=== PATIENT | female | born 1945 | race Caucasian/White ===

== ENCOUNTER → 2018-01-16 11:43 | Outpatient (CLI) | payer MEDICARE, OTHER, SELFPAY ==
[2018-01-16 14:23] LABS: D Dimer < 200 ng/mL (<230)
== END ==
PROVIDERS: Visit Provider Internal Medicine Hematology & Oncology
DX: Z86.718 Personal history of other venous thrombosis and embolism (principal)
CPT/HCPCS: 36415; 85379

== ENCOUNTER → 2018-05-30 16:04 | Outpatient (CLI) | payer MEDICARE, SELFPAY ==
--- NOTE | 2018-05-30 | DI.MRI.S_ITS ---
PROCEDURE: MR HEAD/BRAIN WO/W CON INDICATIONS: COGNITIVE CHANGES. HEADACHES. MULTIPLE FALLS TECHNIQUE: Noncontrast axial T1 spin echo, axial T2 fast spin echo, sagittal and axial FLAIR, coronal T2 fast spin echo, axial gradient echo, axial diffusion and ADC through the brain. After the administration of contrast, axial and coronal T1 spin echo with fat saturation through the brain. COMPARISON: [facility], CT, HEAD WITHOUT CONTRAST, 12/29/2013, 17:40. [facility], CT, HEAD WITHOUT CONTRAST, 09/04/2015, 14:18. FINDINGS: Image quality: Excellent. CSF spaces: Basal cisterns are patent. No extra-axial fluid collections. Ventricles are normal in size and shape. Brain: No midline shift. No intracranial bleeds or masses. No abnormal intracranial enhancement. There is cerebral volume loss for age. There is periventricular white matter chronic small vessel ischemic change. The brainstem appears normal. Diffusion-weighted images demonstrate no acute ischemic insults. No chronic ischemic insults. Normal intravascular flow voids are present. Skull and face: Calvarial marrow is normal in signal. Orbits appear normal. Note is made of bilateral lens replacements. Sinuses: Sinuses and mastoids appear clear. Bilateral jermaine bullosa are incidentally noted, right larger than left. IMPRESSION: Normal intracranial study for age. No findings of acute or subacute infarction can be seen. Note is made of age-appropriate brain parenchymal volume loss and chronic small vessel ischemic changes. Dictated by: Pernell Starr M.D. on 05/30/2018 at 17:03 Approved by: Pernell Starr M.D. on 05/30/2018 at 17:05
== END ==
PROVIDERS: PCP Family Medicine; Visit Provider Family Medicine
DX: R41.89 Other symptoms and signs involving cognitive functions and awareness (principal); R51 Headache; Z91.81 History of falling
CPT/HCPCS: 70553; A9579

== ENCOUNTER 2018-06-07 09:00 | Outpatient (RCR) | payer MEDICARE, OTHER, SELFPAY ==
--- NOTE | 2018-04-13 15:45 | PT.OIE ---
Current Diagnoses Postural lordosis, site unspecified (04/13/18) Other osteoporosis without current pathological fracture (04/13/18) Weakness (04/13/18) Encounter for therapeutic drug level monitoring (04/13/18) Provider Visit Care Team Role Provider Type Mike Nation MD Attending Provider Non-Staff Specialty: Family Practice Address: [address] [place] [address], [phone] Fax: Email: Physical Therapy Initial Evaluation PT-OP-A Visit Information Start: 04/12/18 14:51 Freq: Status: Active Protocol: Document 04/13/18 11:22 LRN (Rec: 04/13/18 12:46 LRN [id number]) Out-Patient Physical Therapy Visit Information Visit Information Visit Type Initial Evaluation Visit Start Time 11:22 Visit Stop Time 12:22 Total Visit Minutes 60 Visit Number 05/10 Number of AUTO MACHINIST Visits 0 Evaluation Information Evaluation Date 04/13/18 Precautions Precautions Osteoporosis with 3 spinal fractures in 2014, Waldemar TKA's, Depression PT-OP-B Current Condition Start: 04/12/18 14:51 Freq: Status: Active Protocol: Document 04/13/18 11:22 LRN (Rec: 04/13/18 12:46 LRN [id number]) Current Condition History of Current Condition Onset Date 3 yrs ago Current Complaints If posture is changed like its supposed to be she has pain. History of Current Condition 3 yrs ago within a 4 month period had 3 vertebra fractures (kyphoplasty only after the first fracture). 1st time was reaching to remove a blouse from behind a door. 2nd time was pulling self up into a boat. 3rd time not sure but thinks it was stepping up into a bus, using railing to pull self up. Fracture in upper, mid and lower back. Currently she has pain after any prolonged positioning or when trying to return to a more normal posture positioni. PMH: Blood Clots 6-7 yrs ago. On Blood thinners. TKA: 6 yrs ago. Depression with meds and therapy. Osteoporosis with neck and back pain. Prior Treatments and Tests Forteo injections for osteoporosis in the abdomen daily for 2 yrs with + response, currently taking Proleia injections for osteoporosis 1x/6 months. Future Testing and Treatments Planned Yearly check of bone density. Treatment Goals Patient/Caregiver Goals Couple of sessions to Learn exercises to improve posture and reduce stiffness and pain with prolonged positioning. Agreeable to up to 5 treatments as needed to be placed on HEP. Pt goal is to improve appearance to avoid hunching over and be able to maintain her posture like she should have it. Prior Functional Status Baseline Function- ADL's Independent Baseline Function- Mobility Independent Current Functional Impairments (Reported) Functional Limitations- ADL's Lifting Twisting (dressing, cleaning, cooking) Limited with head movement affecting driving. Functional Limitations- Mobility/Gait Limited 2 miles hiking due to becoming sore and tired. Functional Limitations- Recreation/ Boating and living on a Hobbies sailboat for 3 months of the year (August - November). Personal Factors Other Personal Factors That May Effect Age is 65+ Therapy/Recovery Lives on boat Osteoporosis Depression Spinal fracture history. PT-OP-C Subjective Start: 04/12/18 14:51 Freq: Status: Active Protocol: Document 04/13/18 11:22 LRN (Rec: 04/13/18 12:46 LRN [id number]) Patient Questionnaires Oswestry Low Back Index Oswestry Score 1 Oswestry Impairment 1 to 19% Impaired (Score 1-19) OP-PT Pain Assessment Pain Assessment Grid Paper Pain Assessment Grid Completed Yes Location Mid back Pain Location Details Across back at T3-T8 level Intensity 4 Scale Used Numeric (1 - 10) Description Aching Description- Other Pain when coming out of Prolonged positioning Frequency Intermittent Pain Duration Short: 1/2 hr to 45' Pain Aggravating Factors Position Changing Position Activity Lifting Pain Alleviating Factors Lying Supine Upper Back Pain Location Details Upper Trapezius and Supraspinatus Bilaterally Intensity 4 Scale Used Numeric (1 - 10) Description Aching Description- Other Pain when coming out of Prolonged positioning Frequency Daily Pain Duration Short: 1/2 hr to 45' Pain Aggravating Factors Changing Position Activity Lifting Pain Alleviating Factors Lying Supine Other Pain Alleviating Factors Standing up against a wall. PT-OP-F Manual Assessment Start: 04/12/18 14:51 Freq: Status: Active Protocol: Document 04/13/18 11:22 LRN (Rec: 04/13/18 17:08 LRN [id number]) Manual Assessments Soft Tissue Assessment Soft Tissue Mobility Assessment Tenderness is present at T9 Spinous process and facet joint region on the left. PT-OP-H Neuro Start: 04/12/18 14:51 Freq: Status: Active Protocol: Document 04/13/18 11:22 LRN (Rec: 04/13/18 17:08 LRN [id number]) Sensation Evaluation Gross Sensation Gross Sensation WNL PT-OP-J Posture/Palpation/Skin Start: 04/12/18 14:51 Freq: Status: Active Protocol: Document 04/13/18 11:22 LRN (Rec: 04/13/18 17:08 LRN [id number]) Posture Evaluation Position Standing Head/C-Spine Posture Side Bent Left Forward Head T-Spine Posture Increased Kyphosis L-Spine Posture Increased Lordosis Shoulder Posture (L) Elevated Scapula Posture (R) Rotated Up Weight Distribution Weight Shifted Left Decreased Wt.Bear on (R) Knee Posture (R) Excess Flexion Palpation Assessment Location Thoracic region Palpation Location Posterior Mid thoracic Palpation Findings Tenderness Neck and Upper shoulders Palpation Findings Muscle Guarding Tenderness PT-OP-K Range of Motion Start: 04/12/18 14:51 Freq: Status: Active Protocol: Document 04/13/18 11:22 LRN (Rec: 04/13/18 17:08 LRN [id number]) Cervical Spine Range of Motion Cervical Spine Active Degrees Testing Position Sitting Flexion 40 Extension 46 Rotation Left 37 Rotation Right 40 Lateral Flexion Left 22 Lateral Flexion Right 20 ROM Limitations Soft Tissue Tightness Pain Shoulder Goniometric Range of Motion Shoulder ROM Limitations Comments BILATERAL Shoulder: Flex is 147 deg's, Extension is 37 deg 's, Reaching behind the back to level of T10, Reaching reaching behind the head to T3 . Shoulder AB is 170 deg's left, WNL right PT-OP-M Strength Start: 04/12/18 14:51 Freq: Status: Active Protocol: Document 04/13/18 11:22 LRN (Rec: 04/13/18 17:08 LRN [id number]) Trunk Strength Trunk Manual Muscle Testing Comments Deferred formal MMT due to pt osteoporosis and history of fractures. Pt trunk strength is at least 3/5 without onset of pain. PT-OP-Q Treatments Start: 04/12/18 14:51 Freq: Status: Active Protocol: Document 04/13/18 11:22 LRN (Rec: 04/13/18 17:08 LRN [id number]) Therapeutic Exercises Supine Exercises Cervical Sidebend Supine Exercise Name Active stretch Side bilateral Reps/Minutes 4 Cervical rotation Supine Exercise Name Active Cervical stretch Side bilateral Reps/Minutes 4' Thoracic extension Side bilateral Reps/Minutes 3' Self-Care/Home Management Treatment Education Patient Education Home Exercise Program Activities Self-Care/Home Management Activities Issued and reviewed HEP of cervical rot & SB stretches and thoracic extension in supine. PT-OP-T Assessment and Plan Start: 04/12/18 14:51 Freq: Status: Active Protocol: Document 04/13/18 11:22 LRN (Rec: 04/13/18 12:46 LRN [id number]) Physical Therapy Assessment Evaluation Complexity Number of Personal Factors/Comorbidities 3 or More Number of Body Systems Impaired 3 Clinical Presentation at Evaluation Stable Impairments Impairments Functional Activities Functional Mobility Pain Posture ROM Strength Other Concerns Age Related Concerns Age 65+ Barriers to Rehabilitation Chronicity of condition, Depression Osteoporosis and spinal fracture history. Goals Three Impairment Decreased postural stabilization and core strength. Jail Goal (LTG) Pt will be able to change trunk position with minimal onset of pain and minimize pain onset with functional activities and the need to lie down to relieve pain. LTG Duration 05/25/18 Two Impairment Poor posture Med Peds Goal (LTG) Pt will be able to demonstrate improved posturing without verbal cuing. LTG Duration 05/25/18 One Impairment Lacks appropriate self care program. Med Peds Goal (LTG) Pt will be independent in a self group home exercise program. LTG Duration 05/25/18 Assessment Summary Assessment Pt is a 72 year old female who presents with notable thoracic kyphosis and a habit of standing on the left lower extremities with the right leg flexed. She demonstrates decreased mobility primarily in the neck and shoulders with mobility retriction in the thoracic spine with kyphoplasty level unknown. The pt notes difficulty maintaining good posture with onset of pain when she tries to self correct her posture; therefore she has weak trunk stabilizers/extensors. The pt will benefit from skilled physical therapy to improve posture, strength, and neck mobility. Physical Therapy Plan Frequency and Duration Frequency of Treatment 1x/Week Plan of Care Start Date 04/13/18 Plan of Care End Date 05/25/18 Therapeutic Interventions Therapeutic Interventions Home Exercise Program Manual Therapy Neuromuscular Re-education Self-Care/Home Management Soft Tissue Mobilization Therapeutic Exercises Modalities Cold Pack/Ice Massage Hot Packs Next Visit Focus/Plan Next Note Type Treatment Note Next Visit Plan Review HEP, promote postural awareness in 4-pt if tolerated and progress to sit/stand, teach thoracic extension in supine and paraspinal strengthening in supine. STM if needed. End with cold pack .
--- NOTE | 2018-04-13 15:45 | PT.OPPOC ---
Current Diagnoses Postural lordosis, site unspecified (04/13/18) Other osteoporosis without current pathological fracture (04/13/18) Weakness (04/13/18) Encounter for therapeutic drug level monitoring (04/13/18) Provider Visit Care Team Role Provider Type Mike Nation MD Attending Provider Non-Staff Specialty: Family Practice Address: [address] [place] [address], [phone] Fax: Email: Plan Of Care PT-OP-T Assessment and Plan Start: 04/12/18 14:51 Freq: Status: Active Protocol: Document 04/13/18 11:22 LRN (Rec: 04/13/18 12:46 LRN [id number]) Physical Therapy Assessment Evaluation Complexity Number of Personal Factors/Comorbidities 3 or More Number of Body Systems Impaired 3 Clinical Presentation at Evaluation Stable Impairments Impairments Functional Activities Functional Mobility Pain Posture ROM Strength Other Concerns Age Related Concerns Age 65+ Barriers to Rehabilitation Chronicity of condition, Depression Osteoporosis and spinal fracture history. Goals Three Impairment Decreased postural stabilization and core strength. Custodial Goal (LTG) Pt will be able to change trunk position with minimal onset of pain and minimize pain onset with functional activities and the need to lie down to relieve pain. LTG Duration 05/25/18 Two Impairment Poor posture Pipe Covering Molder Goal (LTG) Pt will be able to demonstrate improved posturing without verbal cuing. LTG Duration 05/25/18 One Impairment Lacks appropriate self care program. Custodial Goal (LTG) Pt will be independent in a self assisted exercise program. LTG Duration 05/25/18 Assessment Summary Assessment Pt is a 72 year old female who presents with notable thoracic kyphosis and a habit of standing on the left lower extremities with the right leg flexed. She demonstrates decreased mobility primarily in the neck and shoulders with mobility retriction in the thoracic spine with kyphoplasty level unknown. The pt notes difficulty maintaining good posture with onset of pain when she tries to self correct her posture; therefore she has weak trunk stabilizers/extensors. The pt will benefit from skilled physical therapy to improve posture, strength, and neck mobility. Physical Therapy Plan Frequency and Duration Frequency of Treatment 1x/Week Plan of Care Start Date 04/13/18 Plan of Care End Date 05/25/18 Therapeutic Interventions Therapeutic Interventions Home Exercise Program Manual Therapy Neuromuscular Re-education Self-Care/Home Management Soft Tissue Mobilization Therapeutic Exercises Modalities Cold Pack/Ice Massage Hot Packs Next Visit Focus/Plan Next Note Type Treatment Note Next Visit Plan Review HEP, promote postural awareness in 4-pt if tolerated and progress to sit/stand, teach thoracic extension in supine and paraspinal strengthening in supine. STM if needed. End with cold pack . Plan of Care Dates Plan of Care Start Date 04/13/18 Plan of Care End Date 05/25/18 Please Sign and Return: I have reviewed this Plan of Care and certify that the skilled therapy services above are required to meet the patient?s needs. Physician Signature Date Printed Name and Credentials Clinical Instructor Signature Printed Name and Credentials
--- NOTE | 2018-04-17 12:20 | PT.OTN ---
Current Diagnoses Postural lordosis, site unspecified (04/17/18) Other osteoporosis without current pathological fracture (04/17/18) Encounter for therapeutic drug level monitoring (04/17/18) Physical Therapy Treatment Note PT-OP-A Visit Information Start: 04/12/18 14:51 Freq: Status: Active Protocol: Document 04/17/18 10:25 EA (Rec: 04/17/18 10:32 EA [id number]) Out-Patient Physical Therapy Visit Information Visit Information Visit Type Treatment Note Visit Start Time 09:45 Visit Stop Time 10:30 Total Visit Minutes 45 Visit Number 2 PT-OP-B Current Condition Start: 04/12/18 14:51 Freq: Status: Active Protocol: Document 04/13/18 11:22 LRN (Rec: 04/13/18 12:46 LRN [id number]) Current Condition History of Current Condition Onset Date 3 yrs ago Current Complaints If posture is changed like its supposed to be she has pain. History of Current Condition 3 yrs ago within a 4 month period had 3 vertebra fractures (kyphoplasty only after the first fracture). 1st time was reaching to remove a blouse from behind a door. 2nd time was pulling self up into a boat. 3rd time not sure but thinks it was stepping up into a bus, using railing to pull self up. Fracture in upper, mid and lower back. Currently she has pain after any prolonged positioning or when trying to return to a more normal posture positioni. PMH: Blood Clots 6-7 yrs ago. On Blood thinners. TKA: 6 yrs ago. Depression with meds and therapy. Osteoporosis with neck and back pain. Prior Treatments and Tests Forteo injections for osteoporosis in the abdomen daily for 2 yrs with + response, currently taking Proleia injections for osteoporosis 1x/6 months. Future Testing and Treatments Planned Yearly check of bone density. Treatment Goals Patient/Caregiver Goals Couple of sessions to Learn exercises to improve posture and reduce stiffness and pain with prolonged positioning. Agreeable to up to 5 treatments as needed to be placed on HEP. Pt goal is to improve appearance to avoid hunching over and be able to maintain her posture like she should have it. Prior Functional Status Baseline Function- ADL's Independent Baseline Function- Mobility Independent Current Functional Impairments (Reported) Functional Limitations- ADL's Lifting Twisting (dressing, cleaning, cooking) Limited with head movement affecting driving. Functional Limitations- Mobility/Gait Limited 2 miles hiking due to becoming sore and tired. Functional Limitations- Recreation/ Boating and living on a Hobbies sailboat for 3 months of the year (August - November). Personal Factors Other Personal Factors That May Effect Age is 65+ Therapy/Recovery Lives on boat Osteoporosis Depression Spinal fracture history. PT-OP-C Subjective Start: 04/12/18 14:51 Freq: Status: Active Protocol: Document 04/17/18 10:25 EA (Rec: 04/17/18 10:32 EA [id number]) OP-PT Subjective Patient Comments Patient Comments Pt reports unclear about some HEP> and would like to explain again. PT-OP-F Manual Assessment Start: 04/12/18 14:51 Freq: Status: Active Protocol: Document 04/13/18 11:22 LRN (Rec: 04/13/18 17:08 LRN [id number]) Manual Assessments Soft Tissue Assessment Soft Tissue Mobility Assessment Tenderness is present at T9 Spinous process and facet joint region on the left. PT-OP-H Neuro Start: 04/12/18 14:51 Freq: Status: Active Protocol: Document 04/13/18 11:22 LRN (Rec: 04/13/18 17:08 LRN [id number]) Sensation Evaluation Gross Sensation Gross Sensation WNL PT-OP-J Posture/Palpation/Skin Start: 04/12/18 14:51 Freq: Status: Active Protocol: Document 04/13/18 11:22 LRN (Rec: 04/13/18 17:08 LRN [id number]) Posture Evaluation Position Standing Head/C-Spine Posture Side Bent Left Forward Head T-Spine Posture Increased Kyphosis L-Spine Posture Increased Lordosis Shoulder Posture (L) Elevated Scapula Posture (R) Rotated Up Weight Distribution Weight Shifted Left Decreased Wt.Bear on (R) Knee Posture (R) Excess Flexion Palpation Assessment Location Thoracic region Palpation Location Posterior Mid thoracic Palpation Findings Tenderness Neck and Upper shoulders Palpation Findings Muscle Guarding Tenderness PT-OP-K Range of Motion Start: 04/12/18 14:51 Freq: Status: Active Protocol: Document 04/13/18 11:22 LRN (Rec: 04/13/18 17:08 LRN [id number]) Cervical Spine Range of Motion Cervical Spine Active Degrees Testing Position Sitting Flexion 40 Extension 46 Rotation Left 37 Rotation Right 40 Lateral Flexion Left 22 Lateral Flexion Right 20 ROM Limitations Soft Tissue Tightness Pain Shoulder Goniometric Range of Motion Shoulder ROM Limitations Comments BILATERAL Shoulder: Flex is 147 deg's, Extension is 37 deg 's, Reaching behind the back to level of T10, Reaching reaching behind the head to T3 . Shoulder AB is 170 deg's left, WNL right PT-OP-M Strength Start: 04/12/18 14:51 Freq: Status: Active Protocol: Document 04/13/18 11:22 LRN (Rec: 04/13/18 17:08 LRN [id number]) Trunk Strength Trunk Manual Muscle Testing Comments Deferred formal MMT due to pt osteoporosis and history of fractures. Pt trunk strength is at least 3/5 without onset of pain. PT-OP-Q Treatments Start: 04/12/18 14:51 Freq: Status: Active Protocol: Document 04/17/18 10:25 EA (Rec: 04/17/18 10:32 EA [id number]) Cardio Equipment Recumbent Bicycle Duration (Minutes) 5 Resistance 4 Seat Position 4 Therapeutic Exercises Sitting Exercises 1 Sitting Exercise Name chin tuck Reps/Minutes x 10 repsx 5SH Standing Exercises 4 Standing Exercise Name Pectoral stretch Side bilateral Reps/Minutes x30 SH x 2 3 Standing Exercise Name Shoulder ext Side bilateral Resistance Lv1 Reps/Minutes x 10 reps x 2 2 Standing Exercise Name Wall squat (30Deg) Reps/Minutes x 5SH x 10 reps 1 Standing Exercise Name Wall posture Reps/Minutes x 5SH x 10 reps Self-Care/Home Management Treatment Education Patient Education Body Mechanics Home Exercise Program Posture Safety Other Education Educated with activites that that requires pre-cautions. Educated with all HEP safety. PT-OP-R Modalities Start: 04/12/18 14:51 Freq: Status: Active Protocol: Document 04/17/18 10:25 EA (Rec: 04/17/18 10:32 EA [id number]) Hot Pack/Cold Pack Treatment Hot Pack Location paralumabr/thoracis Patient Position Sitting Treatment Duration (minutes) 10 Patient Tolerance Good PT-OP-T Assessment and Plan Start: 04/12/18 14:51 Freq: Status: Active Protocol: Document 04/17/18 10:25 EA (Rec: 04/17/18 10:32 EA [id number]) Physical Therapy Assessment Assessment Summary Assessment Patient exhibits good carryover with HEP. Patient requires cues during wall squat and shoulder extension exercises for form and execution. Physical Therapy Plan Next Visit Focus/Plan Next Note Type Treatment Note Next Visit Plan Progress as tolerated
--- NOTE | 2018-04-19 15:59 | PT.OTN ---
Current Diagnoses Postural lordosis, site unspecified (04/19/18) Other osteoporosis without current pathological fracture (04/19/18) Encounter for therapeutic drug level monitoring (04/19/18) Physical Therapy Treatment Note PT-OP-A Visit Information Start: 04/12/18 14:51 Freq: Status: Active Protocol: Document 04/19/18 15:15 DCW (Rec: 04/19/18 15:59 DCW [id number]) Out-Patient Physical Therapy Visit Information Visit Information Visit Type Treatment Note Visit Start Time 15:15 Visit Stop Time 16:00 Total Visit Minutes 45 Visit Number 3 Evaluation Information Evaluation Date 04/13/18 PT-OP-B Current Condition Start: 04/12/18 14:51 Freq: Status: Active Protocol: Document 04/13/18 11:22 LRN (Rec: 04/13/18 12:46 LRN [id number]) Current Condition History of Current Condition Onset Date 3 yrs ago Current Complaints If posture is changed like its supposed to be she has pain. History of Current Condition 3 yrs ago within a 4 month period had 3 vertebra fractures (kyphoplasty only after the first fracture). 1st time was reaching to remove a blouse from behind a door. 2nd time was pulling self up into a boat. 3rd time not sure but thinks it was stepping up into a bus, using railing to pull self up. Fracture in upper, mid and lower back. Currently she has pain after any prolonged positioning or when trying to return to a more normal posture positioni. PMH: Blood Clots 6-7 yrs ago. On Blood thinners. TKA: 6 yrs ago. Depression with meds and therapy. Osteoporosis with neck and back pain. Prior Treatments and Tests Forteo injections for osteoporosis in the abdomen daily for 2 yrs with + response, currently taking Proleia injections for osteoporosis 1x/6 months. Future Testing and Treatments Planned Yearly check of bone density. Treatment Goals Patient/Caregiver Goals Couple of sessions to Learn exercises to improve posture and reduce stiffness and pain with prolonged positioning. Agreeable to up to 5 treatments as needed to be placed on HEP. Pt goal is to improve appearance to avoid hunching over and be able to maintain her posture like she should have it. Prior Functional Status Baseline Function- ADL's Independent Baseline Function- Mobility Independent Current Functional Impairments (Reported) Functional Limitations- ADL's Lifting Twisting (dressing, cleaning, cooking) Limited with head movement affecting driving. Functional Limitations- Mobility/Gait Limited 2 miles hiking due to becoming sore and tired. Functional Limitations- Recreation/ Boating and living on a Hobbies sailboat for 3 months of the year (August - November). Personal Factors Other Personal Factors That May Effect Age is 65+ Therapy/Recovery Lives on boat Osteoporosis Depression Spinal fracture history. PT-OP-C Subjective Start: 04/12/18 14:51 Freq: Status: Active Protocol: Document 04/19/18 15:15 DCW (Rec: 04/19/18 15:59 DCW [id number]) OP-PT Subjective Patient Comments Patient Comments Pt reports she is really feeling her sore muscles from her ribs and shoulders, but she is here ready to go. PT-OP-F Manual Assessment Start: 04/12/18 14:51 Freq: Status: Active Protocol: Document 04/13/18 11:22 LRN (Rec: 04/13/18 17:08 LRN [id number]) Manual Assessments Soft Tissue Assessment Soft Tissue Mobility Assessment Tenderness is present at T9 Spinous process and facet joint region on the left. PT-OP-H Neuro Start: 04/12/18 14:51 Freq: Status: Active Protocol: Document 04/13/18 11:22 LRN (Rec: 04/13/18 17:08 LRN [id number]) Sensation Evaluation Gross Sensation Gross Sensation WNL PT-OP-J Posture/Palpation/Skin Start: 04/12/18 14:51 Freq: Status: Active Protocol: Document 04/13/18 11:22 LRN (Rec: 04/13/18 17:08 LRN [id number]) Posture Evaluation Position Standing Head/C-Spine Posture Side Bent Left Forward Head T-Spine Posture Increased Kyphosis L-Spine Posture Increased Lordosis Shoulder Posture (L) Elevated Scapula Posture (R) Rotated Up Weight Distribution Weight Shifted Left Decreased Wt.Bear on (R) Knee Posture (R) Excess Flexion Palpation Assessment Location Thoracic region Palpation Location Posterior Mid thoracic Palpation Findings Tenderness Neck and Upper shoulders Palpation Findings Muscle Guarding Tenderness PT-OP-K Range of Motion Start: 04/12/18 14:51 Freq: Status: Active Protocol: Document 04/13/18 11:22 LRN (Rec: 04/13/18 17:08 LRN [id number]) Cervical Spine Range of Motion Cervical Spine Active Degrees Testing Position Sitting Flexion 40 Extension 46 Rotation Left 37 Rotation Right 40 Lateral Flexion Left 22 Lateral Flexion Right 20 ROM Limitations Soft Tissue Tightness Pain Shoulder Goniometric Range of Motion Shoulder ROM Limitations Comments BILATERAL Shoulder: Flex is 147 deg's, Extension is 37 deg 's, Reaching behind the back to level of T10, Reaching reaching behind the head to T3 . Shoulder AB is 170 deg's left, WNL right PT-OP-M Strength Start: 04/12/18 14:51 Freq: Status: Active Protocol: Document 04/13/18 11:22 LRN (Rec: 04/13/18 17:08 LRN [id number]) Trunk Strength Trunk Manual Muscle Testing Comments Deferred formal MMT due to pt osteoporosis and history of fractures. Pt trunk strength is at least 3/5 without onset of pain. PT-OP-Q Treatments Start: 04/12/18 14:51 Freq: Status: Active Protocol: Document 04/19/18 15:15 DCW (Rec: 04/19/18 15:59 DCW [id number]) Cardio Equipment Recumbent Bicycle Duration (Minutes) 5 Resistance 5 Seat Position 3 Therapeutic Exercises Supine Exercises Foam Roll Supine Exercise Name Supine on foam roll with pec stretch Equipment Used Full foam roll Prone Exercises I, Y, T's on T-ball Prone Exercise Name Prone on T-ball - I's, Y's, and T's Equipment Used Green T-ball Sitting Exercises Rows Sitting Exercise Name Rows Side bilateral Resistance Lv 3 T-band Equipment Used Seated on Green T-ball Shoulder Extension Sitting Exercise Name Extension Side bilateral Resistance Lv 3 T-band Equipment Used Seated on Green T-ball Shoulder Retraction Sitting Exercise Name Scapular retraction with chin tuck Reps/Minutes 5 hold Comments VCs to prevent shoulder elevation Standing Exercises Horizontal Abduction Standing Exercise Name Horizontal Abduction Side bilateral Resistance Lv 3 Equipment Used T-band 2 Standing Exercise Name Wall squat (30Deg) Reps/Minutes x 5SH x 10 reps 1 Standing Exercise Name Wall posture Reps/Minutes x 5SH x 10 reps PT-OP-R Modalities Start: 04/12/18 14:51 Freq: Status: Active Protocol: Document 04/17/18 10:25 EA (Rec: 04/17/18 10:32 EA [id number]) Hot Pack/Cold Pack Treatment Hot Pack Location paralumabr/thoracis Patient Position Sitting Treatment Duration (minutes) 10 Patient Tolerance Good PT-OP-T Assessment and Plan Start: 04/12/18 14:51 Freq: Status: Active Protocol: Document 04/19/18 15:15 DCW (Rec: 04/19/18 15:59 DCW [id number]) Physical Therapy Assessment Impairments Impairments Functional Activities Functional Mobility Pain Posture ROM Strength Goals Three Impairment Decreased postural stabilization and core strength. Web Marketing Assistant Goal (LTG) Pt will be able to change trunk position with minimal onset of pain and minimize pain onset with functional activities and the need to lie down to relieve pain. LTG Duration 05/25/18 Two Impairment Poor posture Web Marketing Assistant Goal (LTG) Pt will be able to demonstrate improved posturing without verbal cuing. LTG Duration 05/25/18 One Impairment Lacks appropriate self care program. Alf Goal (LTG) Pt will be independent in a self detention exercise program. LTG Duration 05/25/18 Assessment Summary Assessment Pt required additional instruction for body mechanics during lifting, but tolerated all new TherEx well. Physical Therapy Plan Frequency and Duration Frequency of Treatment 1x/Week Plan of Care Start Date 04/13/18 Plan of Care End Date 05/25/18 Therapeutic Interventions Therapeutic Interventions Home Exercise Program Manual Therapy Neuromuscular Re-education Self-Care/Home Management Soft Tissue Mobilization Therapeutic Exercises Modalities Cold Pack/Ice Massage Hot Packs Next Visit Focus/Plan Next Note Type Treatment Note Next Visit Plan Progress as tolerated
--- NOTE | 2018-05-02 10:53 | PT.OTN ---
Current Diagnoses Postural lordosis, site unspecified (05/02/18) Other osteoporosis without current pathological fracture (05/02/18) Encounter for therapeutic drug level monitoring (05/02/18) Physical Therapy Treatment Note PT-OP-A Visit Information Start: 04/12/18 14:51 Freq: Status: Active Protocol: Document 05/02/18 09:51 EA (Rec: 05/02/18 10:28 EA [id number]) Out-Patient Physical Therapy Visit Information Visit Information Visit Type Treatment Note Visit Start Time 09:45 Visit Stop Time 10:30 Total Visit Minutes 45 Visit Number 4 PT-OP-B Current Condition Start: 04/12/18 14:51 Freq: Status: Active Protocol: Document 04/13/18 11:22 LRN (Rec: 04/13/18 12:46 LRN [id number]) Current Condition History of Current Condition Onset Date 3 yrs ago Current Complaints If posture is changed like its supposed to be she has pain. History of Current Condition 3 yrs ago within a 4 month period had 3 vertebra fractures (kyphoplasty only after the first fracture). 1st time was reaching to remove a blouse from behind a door. 2nd time was pulling self up into a boat. 3rd time not sure but thinks it was stepping up into a bus, using railing to pull self up. Fracture in upper, mid and lower back. Currently she has pain after any prolonged positioning or when trying to return to a more normal posture positioni. PMH: Blood Clots 6-7 yrs ago. On Blood thinners. TKA: 6 yrs ago. Depression with meds and therapy. Osteoporosis with neck and back pain. Prior Treatments and Tests Forteo injections for osteoporosis in the abdomen daily for 2 yrs with + response, currently taking Proleia injections for osteoporosis 1x/6 months. Future Testing and Treatments Planned Yearly check of bone density. Treatment Goals Patient/Caregiver Goals Couple of sessions to Learn exercises to improve posture and reduce stiffness and pain with prolonged positioning. Agreeable to up to 5 treatments as needed to be placed on HEP. Pt goal is to improve appearance to avoid hunching over and be able to maintain her posture like she should have it. Prior Functional Status Baseline Function- ADL's Independent Baseline Function- Mobility Independent Current Functional Impairments (Reported) Functional Limitations- ADL's Lifting Twisting (dressing, cleaning, cooking) Limited with head movement affecting driving. Functional Limitations- Mobility/Gait Limited 2 miles hiking due to becoming sore and tired. Functional Limitations- Recreation/ Boating and living on a Hobbies sailboat for 3 months of the year (August - November). Personal Factors Other Personal Factors That May Effect Age is 65+ Therapy/Recovery Lives on boat Osteoporosis Depression Spinal fracture history. PT-OP-C Subjective Start: 04/12/18 14:51 Freq: Status: Active Protocol: Document 05/02/18 09:51 EA (Rec: 05/02/18 10:28 EA [id number]) OP-PT Subjective Patient Comments Patient Comments Pt reports compliant with HEP; states back is sore after but abruptly disappear. PT-OP-F Manual Assessment Start: 04/12/18 14:51 Freq: Status: Active Protocol: Document 04/13/18 11:22 LRN (Rec: 04/13/18 17:08 LRN [id number]) Manual Assessments Soft Tissue Assessment Soft Tissue Mobility Assessment Tenderness is present at T9 Spinous process and facet joint region on the left. PT-OP-H Neuro Start: 04/12/18 14:51 Freq: Status: Active Protocol: Document 04/13/18 11:22 LRN (Rec: 04/13/18 17:08 LRN [id number]) Sensation Evaluation Gross Sensation Gross Sensation WNL PT-OP-J Posture/Palpation/Skin Start: 04/12/18 14:51 Freq: Status: Active Protocol: Document 04/13/18 11:22 LRN (Rec: 04/13/18 17:08 LRN [id number]) Posture Evaluation Position Standing Head/C-Spine Posture Side Bent Left Forward Head T-Spine Posture Increased Kyphosis L-Spine Posture Increased Lordosis Shoulder Posture (L) Elevated Scapula Posture (R) Rotated Up Weight Distribution Weight Shifted Left Decreased Wt.Bear on (R) Knee Posture (R) Excess Flexion Palpation Assessment Location Thoracic region Palpation Location Posterior Mid thoracic Palpation Findings Tenderness Neck and Upper shoulders Palpation Findings Muscle Guarding Tenderness PT-OP-K Range of Motion Start: 04/12/18 14:51 Freq: Status: Active Protocol: Document 04/13/18 11:22 LRN (Rec: 04/13/18 17:08 LRN [id number]) Cervical Spine Range of Motion Cervical Spine Active Degrees Testing Position Sitting Flexion 40 Extension 46 Rotation Left 37 Rotation Right 40 Lateral Flexion Left 22 Lateral Flexion Right 20 ROM Limitations Soft Tissue Tightness Pain Shoulder Goniometric Range of Motion Shoulder ROM Limitations Comments BILATERAL Shoulder: Flex is 147 deg's, Extension is 37 deg 's, Reaching behind the back to level of T10, Reaching reaching behind the head to T3 . Shoulder AB is 170 deg's left, WNL right PT-OP-M Strength Start: 04/12/18 14:51 Freq: Status: Active Protocol: Document 04/13/18 11:22 LRN (Rec: 04/13/18 17:08 LRN [id number]) Trunk Strength Trunk Manual Muscle Testing Comments Deferred formal MMT due to pt osteoporosis and history of fractures. Pt trunk strength is at least 3/5 without onset of pain. PT-OP-Q Treatments Start: 04/12/18 14:51 Freq: Status: Active Protocol: Document 05/02/18 09:51 EA (Rec: 05/02/18 10:28 EA [id number]) Cardio Equipment Recumbent Bicycle Duration (Minutes) 5 Resistance 5 Seat Position 3 Therapeutic Exercises Supine Exercises Cervical Sidebend Supine Exercise Name Active stretch Side bilateral Reps/Minutes 4 Prone Exercises I, Y, T's on T-ball Prone Exercise Name Prone on T-ball - I's, Y's, and T's Equipment Used Green T-ball Reps/Minutes 10 reps Sitting Exercises Shoulder Retraction Sitting Exercise Name Scapular retraction with chin tuck Reps/Minutes 5 hold Comments VCs to prevent shoulder elevation Standing Exercises Horizontal Abduction Standing Exercise Name Horizontal Abduction Side bilateral Resistance Lv 3 Equipment Used T-band 4 Standing Exercise Name Pectoral stretch Side bilateral Reps/Minutes x30 SH x 2 3 Standing Exercise Name Shoulder ext Side bilateral Resistance Lv1 Reps/Minutes x 10 reps x 2 2 Standing Exercise Name Wall squat (30Deg) Reps/Minutes x 5SH x 10 reps Comments chin tucked with ant pelvic tilt PT-OP-R Modalities Start: 04/12/18 14:51 Freq: Status: Active Protocol: Document 05/02/18 09:51 EA (Rec: 05/02/18 10:28 EA [id number]) Hot Pack/Cold Pack Treatment Hot Pack Location paralumabr/thoracis Patient Position Sitting Treatment Duration (minutes) 10 Patient Tolerance Good PT-OP-T Assessment and Plan Start: 04/12/18 14:51 Freq: Status: Active Protocol: Document 05/02/18 09:51 CHYNA (Rec: 05/02/18 10:28 EA [id number]) Physical Therapy Assessment Assessment Summary Assessment Patient required cues to not bend tunk with lifting object from the floor. Noted unmindful picking things from the floor with poor body mechanics. Physical Therapy Plan Next Visit Focus/Plan Next Note Type Treatment Note Next Visit Plan Progress as tolerated
--- NOTE | 2018-05-09 12:19 | PT.OTN ---
Current Diagnoses Postural lordosis, site unspecified (05/09/18) Other osteoporosis without current pathological fracture (05/09/18) Encounter for therapeutic drug level monitoring (05/09/18) Physical Therapy Treatment Note PT-OP-A Visit Information Start: 04/12/18 14:51 Freq: Status: Active Protocol: Document 05/09/18 10:25 EA (Rec: 05/09/18 10:31 EA [id number]) Out-Patient Physical Therapy Visit Information Visit Information Visit Type Treatment Note Visit Start Time 09:45 Visit Stop Time 10:30 Total Visit Minutes 38 Visit Number 5 PT-OP-B Current Condition Start: 04/12/18 14:51 Freq: Status: Active Protocol: Document 04/13/18 11:22 LRN (Rec: 04/13/18 12:46 LRN [id number]) Current Condition History of Current Condition Onset Date 3 yrs ago Current Complaints If posture is changed like its supposed to be she has pain. History of Current Condition 3 yrs ago within a 4 month period had 3 vertebra fractures (kyphoplasty only after the first fracture). 1st time was reaching to remove a blouse from behind a door. 2nd time was pulling self up into a boat. 3rd time not sure but thinks it was stepping up into a bus, using railing to pull self up. Fracture in upper, mid and lower back. Currently she has pain after any prolonged positioning or when trying to return to a more normal posture positioni. PMH: Blood Clots 6-7 yrs ago. On Blood thinners. TKA: 6 yrs ago. Depression with meds and therapy. Osteoporosis with neck and back pain. Prior Treatments and Tests Forteo injections for osteoporosis in the abdomen daily for 2 yrs with + response, currently taking Proleia injections for osteoporosis 1x/6 months. Future Testing and Treatments Planned Yearly check of bone density. Treatment Goals Patient/Caregiver Goals Couple of sessions to Learn exercises to improve posture and reduce stiffness and pain with prolonged positioning. Agreeable to up to 5 treatments as needed to be placed on HEP. Pt goal is to improve appearance to avoid hunching over and be able to maintain her posture like she should have it. Prior Functional Status Baseline Function- ADL's Independent Baseline Function- Mobility Independent Current Functional Impairments (Reported) Functional Limitations- ADL's Lifting Twisting (dressing, cleaning, cooking) Limited with head movement affecting driving. Functional Limitations- Mobility/Gait Limited 2 miles hiking due to becoming sore and tired. Functional Limitations- Recreation/ Boating and living on a [employer]obbies sailboat for 3 months of the year (August - November). Personal Factors Other Personal Factors That May Effect Age is 65+ Therapy/Recovery Lives on boat Osteoporosis Depression Spinal fracture history. PT-OP-C Subjective Start: 04/12/18 14:51 Freq: Status: Active Protocol: Document 05/09/18 10:25 EA (Rec: 05/09/18 10:31 EA [id number]) OP-PT Subjective Patient Comments Patient Comments Pt reports no back pain and is complaint with HEP and pre- cautions. PT-OP-F Manual Assessment Start: 04/12/18 14:51 Freq: Status: Active Protocol: Document 04/13/18 11:22 LRN (Rec: 04/13/18 17:08 LRN [id number]) Manual Assessments Soft Tissue Assessment Soft Tissue Mobility Assessment Tenderness is present at T9 Spinous process and facet joint region on the left. PT-OP-H Neuro Start: 04/12/18 14:51 Freq: Status: Active Protocol: Document 04/13/18 11:22 LRN (Rec: 04/13/18 17:08 LRN [id number]) Sensation Evaluation Gross Sensation Gross Sensation WNL PT-OP-J Posture/Palpation/Skin Start: 04/12/18 14:51 Freq: Status: Active Protocol: Document 04/13/18 11:22 LRN (Rec: 04/13/18 17:08 LRN [id number]) Posture Evaluation Position Standing Head/C-Spine Posture Side Bent Left Forward Head T-Spine Posture Increased Kyphosis L-Spine Posture Increased Lordosis Shoulder Posture (L) Elevated Scapula Posture (R) Rotated Up Weight Distribution Weight Shifted Left Decreased Wt.Bear on (R) Knee Posture (R) Excess Flexion Palpation Assessment Location Thoracic region Palpation Location Posterior Mid thoracic Palpation Findings Tenderness Neck and Upper shoulders Palpation Findings Muscle Guarding Tenderness PT-OP-K Range of Motion Start: 04/12/18 14:51 Freq: Status: Active Protocol: Document 04/13/18 11:22 LRN (Rec: 04/13/18 17:08 LRN [id number]) Cervical Spine Range of Motion Cervical Spine Active Degrees Testing Position Sitting Flexion 40 Extension 46 Rotation Left 37 Rotation Right 40 Lateral Flexion Left 22 Lateral Flexion Right 20 ROM Limitations Soft Tissue Tightness Pain Shoulder Goniometric Range of Motion Shoulder ROM Limitations Comments BILATERAL Shoulder: Flex is 147 deg's, Extension is 37 deg 's, Reaching behind the back to level of T10, Reaching reaching behind the head to T3 . Shoulder AB is 170 deg's left, WNL right PT-OP-M Strength Start: 04/12/18 14:51 Freq: Status: Active Protocol: Document 04/13/18 11:22 LRN (Rec: 04/13/18 17:08 LRN [id number]) Trunk Strength Trunk Manual Muscle Testing Comments Deferred formal MMT due to pt osteoporosis and history of fractures. Pt trunk strength is at least 3/5 without onset of pain. PT-OP-Q Treatments Start: 04/12/18 14:51 Freq: Status: Active Protocol: Document 05/09/18 10:25 EA (Rec: 05/09/18 10:31 EA [id number]) Cardio Equipment Recumbent Bicycle Duration (Minutes) 5 Resistance 5 Seat Position 3 Gym Equipment Shuttle Recovery Bilateral Squats Resistance 3.5 cords Shuttle Recovery Platform Stable Reps/Time x 12 reps Therapeutic Exercises Prone Exercises 1 Prone Exercise Name Hip extension Side bilateral Reps/Minutes 15 reps Comments leaned to table I, Y, T's on T-ball Prone Exercise Name Prone on T-ball - I's, Y's, and T's Equipment Used Green T-ball Reps/Minutes 10 reps Sitting Exercises Rows Sitting Exercise Name Rows Side bilateral Resistance Lv 3 T-band Equipment Used Seated on Green T-ball Shoulder Extension Sitting Exercise Name Extension Side bilateral Resistance Lv 3 T-band Equipment Used Seated on Green T-ball 1 Sitting Exercise Name chin tuck Reps/Minutes x 10 repsx 5SH Standing Exercises 5 Standing Exercise Name Hip flexors stretch: half kneeling within //bars Side bilateral Reps/Minutes x30SH x 2reps 4 Standing Exercise Name Pectoral stretch Side bilateral Reps/Minutes x30 SH x 2 2 Standing Exercise Name Wall squat (30Deg) Reps/Minutes x 5SH x 10 reps Comments chin tucked with ant pelvic tilt 1 Standing Exercise Name Wall posture Reps/Minutes x 5SH x 10 reps PT-OP-R Modalities Start: 04/12/18 14:51 Freq: Status: Active Protocol: Document 05/09/18 10:25 EA (Rec: 05/09/18 10:31 EA [id number]) Hot Pack/Cold Pack Treatment Hot Pack Location paralumabr/thoracis Patient Position Sitting Treatment Duration (minutes) 10 Patient Tolerance Good PT-OP-T Assessment and Plan Start: 04/12/18 14:51 Freq: Status: Active Protocol: Document 05/09/18 10:25 EA (Rec: 05/09/18 10:31 EA [id number]) Physical Therapy Assessment Assessment Summary Assessment Tolerated treatment well with no complaint. Patient has improved postural awareness during mobility. Physical Therapy Plan Next Visit Focus/Plan Next Note Type Treatment Note Next Visit Plan Progress as tolerated
--- NOTE | 2018-05-11 15:15 | PT.OTN ---
Current Diagnoses Postural lordosis, site unspecified (05/11/18) Other osteoporosis without current pathological fracture (05/11/18) Encounter for therapeutic drug level monitoring (05/11/18) Physical Therapy Treatment Note PT-OP-A Visit Information Start: 04/12/18 14:51 Freq: Status: Active Protocol: Document 05/11/18 09:00 LRN (Rec: 05/11/18 09:51 LRN [id number]) Out-Patient Physical Therapy Visit Information Visit Information Visit Type Treatment Note Visit Start Time 09:00 Visit Stop Time 09:51 Total Visit Minutes 51 Visit Number 6 Number of INSPECTION AND TESTING SUPERVISOR Visits 0 Evaluation Information Evaluation Date 04/13/18 PT-OP-B Current Condition Start: 04/12/18 14:51 Freq: Status: Active Protocol: Document 04/13/18 11:22 LRN (Rec: 04/13/18 12:46 LRN [id number]) Current Condition History of Current Condition Onset Date 3 yrs ago Current Complaints If posture is changed like its supposed to be she has pain. History of Current Condition 3 yrs ago within a 4 month period had 3 vertebra fractures (kyphoplasty only after the first fracture). 1st time was reaching to remove a blouse from behind a door. 2nd time was pulling self up into a boat. 3rd time not sure but thinks it was stepping up into a bus, using railing to pull self up. Fracture in upper, mid and lower back. Currently she has pain after any prolonged positioning or when trying to return to a more normal posture positioni. PMH: Blood Clots 6-7 yrs ago. On Blood thinners. TKA: 6 yrs ago. Depression with meds and therapy. Osteoporosis with neck and back pain. Prior Treatments and Tests Forteo injections for osteoporosis in the abdomen daily for 2 yrs with + response, currently taking Proleia injections for osteoporosis 1x/6 months. Future Testing and Treatments Planned Yearly check of bone density. Treatment Goals Patient/Caregiver Goals Couple of sessions to Learn exercises to improve posture and reduce stiffness and pain with prolonged positioning. Agreeable to up to 5 treatments as needed to be placed on HEP. Pt goal is to improve appearance to avoid hunching over and be able to maintain her posture like she should have it. Prior Functional Status Baseline Function- ADL's Independent Baseline Function- Mobility Independent Current Functional Impairments (Reported) Functional Limitations- ADL's Lifting Twisting (dressing, cleaning, cooking) Limited with head movement affecting driving. Functional Limitations- Mobility/Gait Limited 2 miles hiking due to becoming sore and tired. Functional Limitations- Recreation/ Boating and living on a Hobbies sailboat for 3 months of the year (August - November). Personal Factors Other Personal Factors That May Effect Age is 65+ Therapy/Recovery Lives on boat Osteoporosis Depression Spinal fracture history. PT-OP-C Subjective Start: 04/12/18 14:51 Freq: Status: Active Protocol: Document 05/11/18 09:00 LRN (Rec: 05/11/18 13:06 LRN [id number]) OP-PT Subjective Patient Comments Patient Comments States she has intermittent back pain. Feels her legs are stronger and can now stand from a seated position without use of her arms. She would like to continue therapy for at least a few more weeks to strengthen. PT-OP-F Manual Assessment Start: 04/12/18 14:51 Freq: Status: Active Protocol: Document 04/13/18 11:22 LRN (Rec: 04/13/18 17:08 LRN [id number]) Manual Assessments Soft Tissue Assessment Soft Tissue Mobility Assessment Tenderness is present at T9 Spinous process and facet joint region on the left. PT-OP-H Neuro Start: 04/12/18 14:51 Freq: Status: Active Protocol: Document 04/13/18 11:22 LRN (Rec: 04/13/18 17:08 LRN [id number]) Sensation Evaluation Gross Sensation Gross Sensation WNL PT-OP-J Posture/Palpation/Skin Start: 04/12/18 14:51 Freq: Status: Active Protocol: Document 04/13/18 11:22 LRN (Rec: 04/13/18 17:08 LRN [id number]) Posture Evaluation Position Standing Head/C-Spine Posture Side Bent Left Forward Head T-Spine Posture Increased Kyphosis L-Spine Posture Increased Lordosis Shoulder Posture (L) Elevated Scapula Posture (R) Rotated Up Weight Distribution Weight Shifted Left Decreased Wt.Bear on (R) Knee Posture (R) Excess Flexion Palpation Assessment Location Thoracic region Palpation Location Posterior Mid thoracic Palpation Findings Tenderness Neck and Upper shoulders Palpation Findings Muscle Guarding Tenderness PT-OP-K Range of Motion Start: 04/12/18 14:51 Freq: Status: Active Protocol: Document 04/13/18 11:22 LRN (Rec: 04/13/18 17:08 LRN [id number]) Cervical Spine Range of Motion Cervical Spine Active Degrees Testing Position Sitting Flexion 40 Extension 46 Rotation Left 37 Rotation Right 40 Lateral Flexion Left 22 Lateral Flexion Right 20 ROM Limitations Soft Tissue Tightness Pain Shoulder Goniometric Range of Motion Shoulder ROM Limitations Comments BILATERAL Shoulder: Flex is 147 deg's, Extension is 37 deg 's, Reaching behind the back to level of T10, Reaching reaching behind the head to T3 . Shoulder AB is 170 deg's left, WNL right PT-OP-M Strength Start: 04/12/18 14:51 Freq: Status: Active Protocol: Document 04/13/18 11:22 LRN (Rec: 04/13/18 17:08 LRN [id number]) Trunk Strength Trunk Manual Muscle Testing Comments Deferred formal MMT due to pt osteoporosis and history of fractures. Pt trunk strength is at least 3/5 without onset of pain. PT-OP-Q Treatments Start: 04/12/18 14:51 Freq: Status: Active Protocol: Document 05/11/18 09:00 LRN (Rec: 05/11/18 09:51 LRN [id number]) Therapeutic Exercises Supine Exercises Deep Cervical Neck Flexor Supine Exercise Name Strengthening Reps/Minutes 10 x, hold 5 sec's Comments Training needed. Scapular pinch Supine Exercise Name Scap pinch in hooklye Side bilateral Reps/Minutes 10 x Comments Hold 5 sec's. No pillow for head, Cervical Sidebend Supine Exercise Name Active stretch Side bilateral Reps/Minutes 4 Cervical rotation Supine Exercise Name Active Cervical stretch Side bilateral Reps/Minutes 4' Thoracic extension Side bilateral Reps/Minutes 3' Comments Training needed Standing Exercises Row/Lat pull down Side bilateral Resistance Lev 2 T-Band Reps/Minutes 15 x Comments Training needed 5 Standing Exercise Name Reviewed: Hip flexors stretch: half kneeling within //bars Side bilateral Horizontal Abduction Standing Exercise Name Elbows flexed for Horiz AB/ Scap pinch & depression Side bilateral Resistance Lv 2 Equipment Used T-band Comments Training needed 3 Standing Exercise Name Shoulder ext Side bilateral Resistance Lev 2 Reps/Minutes 15 x Self-Care/Home Management Treatment Education Patient Education Home Exercise Program Activities Self-Care/Home Management Activities Issued and reviewed HEP: Supine: thoracic ext & Deep cervical neck flexor strengthening; Standing: Scapular depression, shoulder retract/ER with T-Band & shoulder ext. PT-OP-R Modalities Start: 04/12/18 14:51 Freq: Status: Active Protocol: Document 05/09/18 10:25 EA (Rec: 05/09/18 10:31 EA [id number]) Hot Pack/Cold Pack Treatment Hot Pack Location paralumabr/thoracis Patient Position Sitting Treatment Duration (minutes) 10 Patient Tolerance Good PT-OP-T Assessment and Plan Start: 04/12/18 14:51 Freq: Status: Active Protocol: Document 05/11/18 09:00 LRN (Rec: 05/11/18 13:06 LRN [id number]) Physical Therapy Assessment Goals Four Impairment Unable to get up/down from floor (knees don't work) [employer] Consultant Goal (LTG) Pt will be able to demonstrate the best method for getting up/down from the floor with least amount of pain/ discomfort and proper Bilateral TKA joint protection . LTG Duration 05/25/18 Three Impairment Decreased postural stabilization and core strength. [facility] Goal (LTG) Pt will be able to change trunk position with minimal onset of pain and minimize pain onset with functional activities and the need to lie down to relieve pain. LTG Duration 05/25/18 Two Impairment Poor posture [employer] Consultant Goal (LTG) Pt will be able to demonstrate improved posturing without verbal cuing. LTG Duration 05/25/18 One Impairment Lacks appropriate self care program. [facility] Goal (LTG) Pt will be independent in a self longterm exercise program. LTG Duration 05/25/18 Assessment Summary Assessment Pt is doing well on her HEP. She needed review of ex's to give her confidence that she is doing the ex's correctly. Pt had many questions regarding how to perform the ex's correctly. Physical Therapy Plan Frequency and Duration Frequency of Treatment 1x/Week Plan of Care Start Date 04/13/18 Plan of Care End Date 05/25/18 Next Visit Focus/Plan Next Note Type Treatment Note Next Visit Plan Review HEP issued, progress scoliosis ex's and add knee flex ROM and strengthening ex' s to aid pt in getting up/down from the floor. Promote postural awareness in 4-pt if tolerated, STM and end with cold pack if needed.
--- NOTE | 2018-05-17 14:51 | PT.OTN ---
Current Diagnoses Postural lordosis, site unspecified (05/17/18) Other osteoporosis without current pathological fracture (05/17/18) Encounter for therapeutic drug level monitoring (05/17/18) Physical Therapy Treatment Note PT-OP-A Visit Information Start: 04/12/18 14:51 Freq: Status: Active Protocol: Document 05/17/18 13:32 LRN (Rec: 05/17/18 14:50 LRN [id number]) Out-Patient Physical Therapy Visit Information Visit Information Visit Type Treatment Note Visit Start Time 13:30 Visit Stop Time 14:20 Total Visit Minutes 50 Visit Number 7 Number of DRILLING FIELD OPERATOR Visits 0 Evaluation Information Evaluation Date 04/13/18 PT-OP-B Current Condition Start: 04/12/18 14:51 Freq: Status: Active Protocol: Document 04/13/18 11:22 LRN (Rec: 04/13/18 12:46 LRN [id number]) Current Condition History of Current Condition Onset Date 3 yrs ago Current Complaints If posture is changed like its supposed to be she has pain. History of Current Condition 3 yrs ago within a 4 month period had 3 vertebra fractures (kyphoplasty only after the first fracture). 1st time was reaching to remove a blouse from behind a door. 2nd time was pulling self up into a boat. 3rd time not sure but thinks it was stepping up into a bus, using railing to pull self up. Fracture in upper, mid and lower back. Currently she has pain after any prolonged positioning or when trying to return to a more normal posture positioni. PMH: Blood Clots 6-7 yrs ago. On Blood thinners. TKA: 6 yrs ago. Depression with meds and therapy. Osteoporosis with neck and back pain. Prior Treatments and Tests Forteo injections for osteoporosis in the abdomen daily for 2 yrs with + response, currently taking Proleia injections for osteoporosis 1x/6 months. Future Testing and Treatments Planned Yearly check of bone density. Treatment Goals Patient/Caregiver Goals Couple of sessions to Learn exercises to improve posture and reduce stiffness and pain with prolonged positioning. Agreeable to up to 5 treatments as needed to be placed on HEP. Pt goal is to improve appearance to avoid hunching over and be able to maintain her posture like she should have it. Prior Functional Status Baseline Function- ADL's Independent Baseline Function- Mobility Independent Current Functional Impairments (Reported) Functional Limitations- ADL's Lifting Twisting (dressing, cleaning, cooking) Limited with head movement affecting driving. Functional Limitations- Mobility/Gait Limited 2 miles hiking due to becoming sore and tired. Functional Limitations- Recreation/ Boating and living on a Hobbies sailboat for 3 months of the year (August - November). Personal Factors Other Personal Factors That May Effect Age is 65+ Therapy/Recovery Lives on boat Osteoporosis Depression Spinal fracture history. PT-OP-C Subjective Start: 04/12/18 14:51 Freq: Status: Active Protocol: Document 05/17/18 13:32 LRN (Rec: 05/17/18 14:50 LRN [id number]) OP-PT Subjective Patient Comments Patient Comments States PT-OP-F Manual Assessment Start: 04/12/18 14:51 Freq: Status: Active Protocol: Document 04/13/18 11:22 LRN (Rec: 04/13/18 17:08 LRN [id number]) Manual Assessments Soft Tissue Assessment Soft Tissue Mobility Assessment Tenderness is present at T9 Spinous process and facet joint region on the left. PT-OP-H Neuro Start: 04/12/18 14:51 Freq: Status: Active Protocol: Document 04/13/18 11:22 LRN (Rec: 04/13/18 17:08 LRN [id number]) Sensation Evaluation Gross Sensation Gross Sensation WNL PT-OP-J Posture/Palpation/Skin Start: 04/12/18 14:51 Freq: Status: Active Protocol: Document 04/13/18 11:22 LRN (Rec: 04/13/18 17:08 LRN [id number]) Posture Evaluation Position Standing Head/C-Spine Posture Side Bent Left Forward Head T-Spine Posture Increased Kyphosis L-Spine Posture Increased Lordosis Shoulder Posture (L) Elevated Scapula Posture (R) Rotated Up Weight Distribution Weight Shifted Left Decreased Wt.Bear on (R) Knee Posture (R) Excess Flexion Palpation Assessment Location Thoracic region Palpation Location Posterior Mid thoracic Palpation Findings Tenderness Neck and Upper shoulders Palpation Findings Muscle Guarding Tenderness PT-OP-K Range of Motion Start: 04/12/18 14:51 Freq: Status: Active Protocol: Document 04/13/18 11:22 LRN (Rec: 04/13/18 17:08 LRN [id number]) Cervical Spine Range of Motion Cervical Spine Active Degrees Testing Position Sitting Flexion 40 Extension 46 Rotation Left 37 Rotation Right 40 Lateral Flexion Left 22 Lateral Flexion Right 20 ROM Limitations Soft Tissue Tightness Pain Shoulder Goniometric Range of Motion Shoulder ROM Limitations Comments BILATERAL Shoulder: Flex is 147 deg's, Extension is 37 deg 's, Reaching behind the back to level of T10, Reaching reaching behind the head to T3 . Shoulder AB is 170 deg's left, WNL right PT-OP-M Strength Start: 04/12/18 14:51 Freq: Status: Active Protocol: Document 04/13/18 11:22 LRN (Rec: 04/13/18 17:08 LRN [id number]) Trunk Strength Trunk Manual Muscle Testing Comments Deferred formal MMT due to pt osteoporosis and history of fractures. Pt trunk strength is at least 3/5 without onset of pain. PT-OP-Q Treatments Start: 04/12/18 14:51 Freq: Status: Active Protocol: Document 05/17/18 13:32 LRN (Rec: 05/17/18 14:50 LRN [id number]) Therapeutic Exercises Supine Exercises Deep Cervical Neck Flexor Supine Exercise Name Strengthening Reps/Minutes 10 x, hold 5 sec's Comments Training needed. Thoracic extension Side bilateral Reps/Minutes 3' Comments Training needed Prone Exercises 1 Prone Exercise Name Hip extension Sitting Exercises BKFO Side bilateral Resistance Lev 2 Equipment Used T-Band Knee ext Side bilateral Resistance Lev 2 T-Band Equipment Used T-Band Reps/Minutes 10 x Standing Exercises Hip AB Standing Exercise Name Hip AB with Finger tips on wall for stability as needed Side bilateral Reps/Minutes 10 x Row/Lat pull down Side bilateral Resistance Lev 2 T-Band Reps/Minutes 15 x Comments Physical cuing needed for scapular depression 4 Standing Exercise Name Pectoral stretch 3 Standing Exercise Name Shoulder ext Side bilateral Resistance Lev 2 Equipment Used T-Band Reps/Minutes 10 x 3 Therapeutic Activity Therapeutic Activity Picking up objects off the floor. Reps/Minutes 10' Self-Care/Home Management Treatment Education Patient Education Home Exercise Program Activities Self-Care/Home Management Activities Issued & reviewed HEP of knee ext and Gastocnemius standing stretch. I/S pt in supine Y stretch with arms, T-band row. PT-OP-R Modalities Start: 04/12/18 14:51 Freq: Status: Active Protocol: Document 01/09/19 10:25 EA (Rec: 05/09/18 10:31 EA [id number]) Hot Pack/Cold Pack Treatment Hot Pack Location paralumabr/thoracis Patient Position Sitting Treatment Duration (minutes) 10 Patient Tolerance Good PT-OP-T Assessment and Plan Start: 04/12/18 14:51 Freq: Status: Active Protocol: Document 05/17/18 13:32 LRN (Rec: 05/17/18 14:50 LRN [id number]) Physical Therapy Assessment Impairments Impairments Functional Activities Functional Mobility Pain Posture ROM Strength Other Concerns Age Related Concerns Age 65+ Barriers to Rehabilitation Chronicity of condition, Depression Osteoporosis and spinal fracture history. Goals Four Impairment Unable to get up/down from floor (knees don't work) Fleet Driver Goal (LTG) Pt will be able to demonstrate the best method for getting up/down from the floor with least amount of pain/ discomfort and proper Bilateral TKA joint protection . (05/17/18: Can perform if using hands, pt feeling weak). LTG Duration 06/28/18 Three Impairment Decreased postural stabilization and core strength. Detention Goal (LTG) Pt will be able to change trunk position with minimal onset of pain and minimize pain onset with functional activities and the need to lie down to relieve pain. LTG Duration 05/25/18 GOAL MET. Two Impairment Poor posture Detention Goal (LTG) Pt will be able to demonstrate improved posturing without verbal cuing. (05/17/18: Pt posture is improving) LTG Duration 06/28/18 (05/17/18: Pt posture is improving) One Impairment Lacks appropriate self care program. Detention Goal (LTG) Pt will be independent in a self prison exercise program. (05/17/18: Pt is progressing on her HEP) LTG Duration 06/28/18 (05/17/18: Pt is progressing on her HEP) Assessment Summary Assessment She needs review of ex's to give her confidence that she is doing the ex's correctly. She was able to demonstrate ability to pick objects off the floor is she goes down on one knee. She is aware she can squat in a scissored position or can pick objects up if lifting her back leg. Pt had questions regarding how to perform her ex's correctly and how to picker packer an object off the floor in sitting. Pt was able to demonstrate proper body mechanics for picking up objects, but needs cuing for getting up/down off the table properly. Physical Therapy Plan Frequency and Duration Plan of Care Start Date 04/13/18 Plan of Care End Date 06/28/18 Therapeutic Interventions Therapeutic Interventions Home Exercise Program Manual Therapy Neuromuscular Re-education Self-Care/Home Management Soft Tissue Mobilization Therapeutic Exercises Modalities Cold Pack/Ice Massage Hot Packs Next Visit Focus/Plan Next Note Type Discharge Summary Next Visit Plan Review HEP issued last, and train proper transfer up/down from table if needed. Progress scoliosis ex's and add knee flex ROM and strengthening ex's to aid pt in getting up/down from the floor. Promote postural awareness in 4-pt if tolerated , STM and end with cold pack if needed. DC when pt has indep HEP, possibly in 2 weeks if pt is able to be scheduled .
--- NOTE | 2018-05-17 14:52 | PT.OPPOC ---
Current Diagnoses Postural lordosis, site unspecified (05/17/18) Other osteoporosis without current pathological fracture (05/17/18) Encounter for therapeutic drug level monitoring (05/17/18) Provider Visit Care Team Role Provider Type Mike Nation MD Attending Provider Non-Staff Specialty: Family Practice Address: [address] [place] [address], [phone] Fax: Email: Plan Of Care PT-OP-T Assessment and Plan Start: 04/12/18 14:51 Freq: Status: Active Protocol: Document 05/17/18 13:32 LRN (Rec: 05/17/18 14:50 LRN [id number]) Physical Therapy Assessment Impairments Impairments Functional Activities Functional Mobility Pain Posture ROM Strength Other Concerns Age Related Concerns Age 65+ Barriers to Rehabilitation Chronicity of condition, Depression Osteoporosis and spinal fracture history. Goals Four Impairment Unable to get up/down from floor (knees don't work) Rn Occupational Health Goal (LTG) Pt will be able to demonstrate the best method for getting up/down from the floor with least amount of pain/ discomfort and proper Bilateral TKA joint protection . (05/17/18: Can perform if using hands, pt feeling weak). LTG Duration 06/28/18 Three Impairment Decreased postural stabilization and core strength. [facility] Goal (LTG) Pt will be able to change trunk position with minimal onset of pain and minimize pain onset with functional activities and the need to lie down to relieve pain. LTG Duration 05/25/18 GOAL MET. Two Impairment Poor posture [facility] Goal (LTG) Pt will be able to demonstrate improved posturing without verbal cuing. (05/17/18: Pt posture is improving) LTG Duration 06/28/18 (05/17/18: Pt posture is improving) One Impairment Lacks appropriate self care program. Rn Occupational Health Goal (LTG) Pt will be independent in a self assisted exercise program. (05/17/18: Pt is progressing on her HEP) LTG Duration 06/28/18 (05/17/18: Pt is progressing on her HEP) Assessment Summary Assessment She needs review of ex's to give her confidence that she is doing the ex's correctly. She was able to demonstrate ability to pick objects off the floor is she goes down on one knee. She is aware she can squat in a scissored position or can pick objects up if lifting her back leg. Pt had questions regarding how to perform her ex's correctly and how to excelsior picker an object off the floor in sitting. Pt was able to demonstrate proper body mechanics for picking up objects, but needs cuing for getting up/down off the table properly. Physical Therapy Plan Frequency and Duration Plan of Care Start Date 04/13/18 Plan of Care End Date 06/28/18 Therapeutic Interventions Therapeutic Interventions Home Exercise Program Manual Therapy Neuromuscular Re-education Self-Care/Home Management Soft Tissue Mobilization Therapeutic Exercises Modalities Cold Pack/Ice Massage Hot Packs Next Visit Focus/Plan Next Note Type Discharge Summary Next Visit Plan Review HEP issued last, and train proper transfer up/down from table if needed. Progress scoliosis ex's and add knee flex ROM and strengthening ex's to aid pt in getting up/down from the floor. Promote postural awareness in 4-pt if tolerated , STM and end with cold pack if needed. DC when pt has indep HEP, possibly in 2 weeks if pt is able to be scheduled . Plan of Care Dates Plan of Care Start Date 04/13/18 Plan of Care End Date 06/28/18 Please Sign and Return: I have reviewed this Plan of Care and certify that the skilled therapy services above are required to meet the patient?s needs. Physician Signature Date Printed Name and Credentials Clinical Instructor Signature Printed Name and Credentials
--- NOTE | 2018-05-25 14:52 | PT.OTN ---
Current Diagnoses Postural lordosis, site unspecified (05/25/18) Other osteoporosis without current pathological fracture (05/25/18) Encounter for therapeutic drug level monitoring (05/25/18) Physical Therapy Treatment Note PT-OP-A Visit Information Start: 04/12/18 14:51 Freq: Status: Active Protocol: Document 05/25/18 12:49 LRN (Rec: 05/25/18 13:34 LRN [id number]) Out-Patient Physical Therapy Visit Information Visit Information Visit Type Treatment Note Visit Start Time 12:49 Visit Stop Time 13:35 Total Visit Minutes 46 Visit Number 8 Number of DIE DESIGNER APPRENTICE Visits 0 Evaluation Information Evaluation Date 04/13/18 PT-OP-B Current Condition Start: 04/12/18 14:51 Freq: Status: Active Protocol: Document 04/13/18 11:22 LRN (Rec: 04/13/18 12:46 LRN [id number]) Current Condition History of Current Condition Onset Date 3 yrs ago Current Complaints If posture is changed like its supposed to be she has pain. History of Current Condition 3 yrs ago within a 4 month period had 3 vertebra fractures (kyphoplasty only after the first fracture). 1st time was reaching to remove a blouse from behind a door. 2nd time was pulling self up into a boat. 3rd time not sure but thinks it was stepping up into a bus, using railing to pull self up. Fracture in upper, mid and lower back. Currently she has pain after any prolonged positioning or when trying to return to a more normal posture positioni. PMH: Blood Clots 6-7 yrs ago. On Blood thinners. TKA: 6 yrs ago. Depression with meds and therapy. Osteoporosis with neck and back pain. Prior Treatments and Tests Forteo injections for osteoporosis in the abdomen daily for 2 yrs with + response, currently taking Proleia injections for osteoporosis 1x/6 months. Future Testing and Treatments Planned Yearly check of bone density. Treatment Goals Patient/Caregiver Goals Couple of sessions to Learn exercises to improve posture and reduce stiffness and pain with prolonged positioning. Agreeable to up to 5 treatments as needed to be placed on HEP. Pt goal is to improve appearance to avoid hunching over and be able to maintain her posture like she should have it. Prior Functional Status Baseline Function- ADL's Independent Baseline Function- Mobility Independent Current Functional Impairments (Reported) Functional Limitations- ADL's Lifting Twisting (dressing, cleaning, cooking) Limited with head movement affecting driving. Functional Limitations- Mobility/Gait Limited 2 miles hiking due to becoming sore and tired. Functional Limitations- Recreation/ Boating and living on a [place]obbies sailboat for 3 months of the year (August - November). Personal Factors Other Personal Factors That May Effect Age is 65+ Therapy/Recovery Lives on boat Osteoporosis Depression Spinal fracture history. PT-OP-C Subjective Start: 04/12/18 14:51 Freq: Status: Active Protocol: Document 05/25/18 12:49 LRN (Rec: 05/25/18 13:34 LRN [id number]) OP-PT Subjective Patient Comments Patient Comments Occasional pain with ex and after exercise. States she hasn't had an occasion of sitting or standing for a long time. Is now able to sit/ stand 3 hours without fatigue pain. Having trouble with some of the ex's. Can only do one set. Has to break up the ex's throughout the day. PT-OP-F Manual Assessment Start: 04/12/18 14:51 Freq: Status: Active Protocol: Document 04/13/18 11:22 LRN (Rec: 04/13/18 17:08 LRN [id number]) Manual Assessments Soft Tissue Assessment Soft Tissue Mobility Assessment Tenderness is present at T9 Spinous process and facet joint region on the left. PT-OP-H Neuro Start: 04/12/18 14:51 Freq: Status: Active Protocol: Document 04/13/18 11:22 LRN (Rec: 04/13/18 17:08 LRN [id number]) Sensation Evaluation Gross Sensation Gross Sensation WNL PT-OP-J Posture/Palpation/Skin Start: 04/12/18 14:51 Freq: Status: Active Protocol: Document 04/13/18 11:22 LRN (Rec: 04/13/18 17:08 LRN [id number]) Posture Evaluation Position Standing Head/C-Spine Posture Side Bent Left Forward Head T-Spine Posture Increased Kyphosis L-Spine Posture Increased Lordosis Shoulder Posture (L) Elevated Scapula Posture (R) Rotated Up Weight Distribution Weight Shifted Left Decreased Wt.Bear on (R) Knee Posture (R) Excess Flexion Palpation Assessment Location Thoracic region Palpation Location Posterior Mid thoracic Palpation Findings Tenderness Neck and Upper shoulders Palpation Findings Muscle Guarding Tenderness PT-OP-K Range of Motion Start: 04/12/18 14:51 Freq: Status: Active Protocol: Document 04/13/18 11:22 LRN (Rec: 04/13/18 17:08 LRN [id number]) Cervical Spine Range of Motion Cervical Spine Active Degrees Testing Position Sitting Flexion 40 Extension 46 Rotation Left 37 Rotation Right 40 Lateral Flexion Left 22 Lateral Flexion Right 20 ROM Limitations Soft Tissue Tightness Pain Shoulder Goniometric Range of Motion Shoulder ROM Limitations Comments BILATERAL Shoulder: Flex is 147 deg's, Extension is 37 deg 's, Reaching behind the back to level of T10, Reaching reaching behind the head to T3 . Shoulder AB is 170 deg's left, WNL right PT-OP-M Strength Start: 04/12/18 14:51 Freq: Status: Active Protocol: Document 04/13/18 11:22 LRN (Rec: 04/13/18 17:08 LRN [id number]) Trunk Strength Trunk Manual Muscle Testing Comments Deferred formal MMT due to pt osteoporosis and history of fractures. Pt trunk strength is at least 3/5 without onset of pain. PT-OP-Q Treatments Start: 04/12/18 14:51 Freq: Status: Active Protocol: Document 05/25/18 12:49 LRN (Rec: 05/25/18 13:34 LRN [id number]) Therapeutic Exercises Supine Exercises Scapular pinch Supine Exercise Name Scap pinch in hooklye Side bilateral Reps/Minutes 10 x Comments Hold 5 sec's. No pillow for head, Cervical Sidebend Supine Exercise Name Active stretch Side bilateral Reps/Minutes 5' Cervical rotation Supine Exercise Name Active Cervical stretch Side bilateral Reps/Minutes 5' Thoracic extension Supine Exercise Name Knees flexed and straight Side bilateral Reps/Minutes 6' Comments Training needed Standing Exercises Thoracic ext/postural training Standing Exercise Name Neck elongation with thoracic ext Reps/Minutes 10' Row/Lat pull down Side bilateral Resistance Lev 2 T-Band Reps/Minutes 15 x Comments Physical cuing needed for scapular depression Horizontal Abduction Standing Exercise Name Elbows flexed for Horiz AB/ Scap pinch & depression Side bilateral Resistance Lv 2 Equipment Used T-band Comments Training needed 4 Standing Exercise Name Pectoral stretch Comments In doorway 2 Standing Exercise Name Wall squat (30Deg) Reps/Minutes x 5SH x 10 reps Comments chin tucked with ant pelvic tilt 1 Standing Exercise Name Wall posture Reps/Minutes x 5SH x 10 reps Self-Care/Home Management Treatment Education Patient Education Home Exercise Program Activities Self-Care/Home Management Activities Issued & reviewed Sitting thoracic ext stretch and wall posturing. Reviewed current HEP to update . PT-OP-R Modalities Start: 04/12/18 14:51 Freq: Status: Active Protocol: Document 05/09/18 10:25 EA (Rec: 05/09/18 10:31 EA [id number]) Hot Pack/Cold Pack Treatment Hot Pack Location paralumabr/thoracis Patient Position Sitting Treatment Duration (minutes) 10 Patient Tolerance Good PT-OP-T Assessment and Plan Start: 04/12/18 14:51 Freq: Status: Active Protocol: Document 05/25/18 12:49 LRN (Rec: 05/25/18 13:34 LRN [id number]) Physical Therapy Assessment Goals Four Impairment Unable to get up/down from floor (knees don't work) Supervisor Wheel [employer] Goal (LTG) Pt will be able to demonstrate the best method for getting up/down from the floor with least amount of pain/ discomfort and proper Bilateral TKA joint protection . (05/17/18: Can perform if using hands, pt feeling weak). LTG Duration 06/28/18 Three Impairment Decreased postural stabilization and core strength. Detention Goal (LTG) Pt will be able to change trunk position with minimal onset of pain and minimize pain onset with functional activities and the need to lie down to relieve pain. LTG Duration 05/25/18 GOAL MET. Two Impairment Poor posture Detention Goal (LTG) Pt will be able to demonstrate improved posturing without verbal cuing. (05/17/18: Pt posture is improving) LTG Duration 06/28/18 (05/17/18: Pt posture is improving) One Impairment Lacks appropriate self care program. Detention Goal (LTG) Pt will be independent in a self snf exercise program. (05/17/18: Pt is progressing on her HEP) LTG Duration 06/28/18 (05/17/18: Pt is progressing on her HEP) Assessment Summary Assessment Pt back pain is intermittent. She has difficulty with wall posturing due to kyphosis, thoracic ext is visible in table top positioning and is without pain. Pt has ex's to improve posture. She needs ex to reduce stiffness and pain with prolonged positioning ( education in pain mgmt: sitting active trunk rotation and thoracic ext). Pt seems to need review with new HEP ex 's given. Physical Therapy Plan Next Visit Focus/Plan Next Visit Plan Review getting up/down from floor for need of Gastroc stretch and restart if still needed. Train proper transfer up/down from table if needed. Add ex to reduce stiffness and pain with prolonged positioning (education in pain mgmt: sitting active trunk rotation and thoracic ext) and add knee flex ROM and CCK strengthening ex's to aid pt in getting up/down from the floor. End with cold pack if needed. Next visit to finalize HEP, last visit for review. DC in 1-2 visits.
--- NOTE | 2018-05-31 12:33 | PT.OTN ---
Current Diagnoses Postural lordosis, site unspecified (05/31/18) Other osteoporosis without current pathological fracture (05/31/18) Encounter for therapeutic drug level monitoring (05/31/18) Physical Therapy Treatment Note PT-OP-A Visit Information Start: 04/12/18 14:51 Freq: Status: Active Protocol: Document 05/31/18 09:49 LRN (Rec: 05/31/18 10:32 LRN [id number]) Out-Patient Physical Therapy Visit Information Visit Information Visit Type Treatment Note Visit Start Time 09:49 Visit Stop Time 10:34 Total Visit Minutes 45 Visit Number 8 Number of DENTAL DETAIL REPRESENTATIVE Visits 0 Evaluation Information Evaluation Date 04/13/18 PT-OP-B Current Condition Start: 04/12/18 14:51 Freq: Status: Active Protocol: Document 04/13/18 11:22 LRN (Rec: 04/13/18 12:46 LRN [id number]) Current Condition History of Current Condition Onset Date 3 yrs ago Current Complaints If posture is changed like its supposed to be she has pain. History of Current Condition 3 yrs ago within a 4 month period had 3 vertebra fractures (kyphoplasty only after the first fracture). 1st time was reaching to remove a blouse from behind a door. 2nd time was pulling self up into a boat. 3rd time not sure but thinks it was stepping up into a bus, using railing to pull self up. Fracture in upper, mid and lower back. Currently she has pain after any prolonged positioning or when trying to return to a more normal posture positioni. PMH: Blood Clots 6-7 yrs ago. On Blood thinners. TKA: 6 yrs ago. Depression with meds and therapy. Osteoporosis with neck and back pain. Prior Treatments and Tests Forteo injections for osteoporosis in the abdomen daily for 2 yrs with + response, currently taking Proleia injections for osteoporosis 1x/6 months. Future Testing and Treatments Planned Yearly check of bone density. Treatment Goals Patient/Caregiver Goals Couple of sessions to Learn exercises to improve posture and reduce stiffness and pain with prolonged positioning. Agreeable to up to 5 treatments as needed to be placed on HEP. Pt goal is to improve appearance to avoid hunching over and be able to maintain her posture like she should have it. Prior Functional Status Baseline Function- ADL's Independent Baseline Function- Mobility Independent Current Functional Impairments (Reported) Functional Limitations- ADL's Lifting Twisting (dressing, cleaning, cooking) Limited with head movement affecting driving. Functional Limitations- Mobility/Gait Limited 2 miles hiking due to becoming sore and tired. Functional Limitations- Recreation/ Boating and living on a [place]obbies sailboat for 3 months of the year (August - November). Personal Factors Other Personal Factors That May Effect Age is 65+ Therapy/Recovery Lives on boat Osteoporosis Depression Spinal fracture history. PT-OP-C Subjective Start: 04/12/18 14:51 Freq: Status: Active Protocol: Document 05/31/18 09:49 LRN (Rec: 05/31/18 10:32 LRN [id number]) OP-PT Subjective Patient Comments Patient Comments She noticed when she hunches over and head comes forward then she feels back pain. PT-OP-F Manual Assessment Start: 04/12/18 14:51 Freq: Status: Active Protocol: Document 04/13/18 11:22 LRN (Rec: 04/13/18 17:08 LRN [id number]) Manual Assessments Soft Tissue Assessment Soft Tissue Mobility Assessment Tenderness is present at T9 Spinous process and facet joint region on the left. PT-OP-H Neuro Start: 04/12/18 14:51 Freq: Status: Active Protocol: Document 04/13/18 11:22 LRN (Rec: 04/13/18 17:08 LRN [id number]) Sensation Evaluation Gross Sensation Gross Sensation WNL PT-OP-J Posture/Palpation/Skin Start: 04/12/18 14:51 Freq: Status: Active Protocol: Document 05/31/18 09:49 LRN (Rec: 05/31/18 12:22 LRN [id number]) Posture Evaluation Comments Posture Comments Wall to Tragus 6.5 (16.5 cm). Norm is 10 cm. PT-OP-K Range of Motion Start: 04/12/18 14:51 Freq: Status: Active Protocol: Document 04/13/18 11:22 LRN (Rec: 04/13/18 17:08 LRN [id number]) Cervical Spine Range of Motion Cervical Spine Active Degrees Testing Position Sitting Flexion 40 Extension 46 Rotation Left 37 Rotation Right 40 Lateral Flexion Left 22 Lateral Flexion Right 20 ROM Limitations Soft Tissue Tightness Pain Shoulder Goniometric Range of Motion Shoulder ROM Limitations Comments BILATERAL Shoulder: Flex is 147 deg's, Extension is 37 deg 's, Reaching behind the back to level of T10, Reaching reaching behind the head to T3 . Shoulder AB is 170 deg's left, WNL right PT-OP-M Strength Start: 04/12/18 14:51 Freq: Status: Active Protocol: Document 04/13/18 11:22 LRN (Rec: 04/13/18 17:08 LRN [id number]) Trunk Strength Trunk Manual Muscle Testing Comments Deferred formal MMT due to pt osteoporosis and history of fractures. Pt trunk strength is at least 3/5 without onset of pain. PT-OP-Q Treatments Start: 04/12/18 14:51 Freq: Status: Active Protocol: Document 05/31/18 09:49 LRN (Rec: 05/31/18 10:32 LRN [id number]) Therapeutic Exercises Supine Exercises Scapular pinch Supine Exercise Name Scap pinch in hooklye Side bilateral Reps/Minutes 10 x Comments Hold 5 sec's. No pillow for head, Thoracic extension Supine Exercise Name Knees straight, arms in Goal Post stretch Side bilateral Reps/Minutes 6' Comments Training needed Sitting Exercises Thoracic ext Side bilateral Reps/Minutes 10x each Comments 5-10 sec hold Shoulder Retraction Sitting Exercise Name Sitting trunk rotation Side bilateral Reps/Minutes 10x Standing Exercises Gastroc/Soleus Standing Exercise Name Stretch Side bilateral Reps/Minutes 3' Thoracic ext/postural training Standing Exercise Name Neck elongation with thoracic ext against wall Reps/Minutes 10' 2 Standing Exercise Name Wall squat (30Deg) Therapeutic Activity Therapeutic Activity Kneeling Name 1 leg forward kneeling on an 8 and 1 pad Comments 15' Picking up objects off the floor. Reps/Minutes 5' PT-OP-R Modalities Start: 04/12/18 14:51 Freq: Status: Active Protocol: Document 05/09/18 10:25 EA (Rec: 05/09/18 10:31 EA [id number]) Hot Pack/Cold Pack Treatment Hot Pack Location paralumabr/thoracis Patient Position Sitting Treatment Duration (minutes) 10 Patient Tolerance Good PT-OP-T Assessment and Plan Start: 04/12/18 14:51 Freq: Status: Active Protocol: Document 05/31/18 09:49 LRN (Rec: 05/31/18 10:32 LRN [id number]) Physical Therapy Assessment Goals Four Impairment Unable to get up/down from floor (knees don't work) Senior Care Goal (LTG) Pt will be able to demonstrate the best method for getting up/down from the floor with least amount of pain/ discomfort and proper Bilateral TKA joint protection . (05/17/18: Can perform if using hands, pt feeling weak). LTG Duration 06/28/18 Three Impairment Decreased postural stabilization and core strength. Senior Care Goal (LTG) Pt will be able to change trunk position with minimal onset of pain and minimize pain onset with functional activities and the need to lie down to relieve pain. LTG Duration 05/25/18 GOAL MET. Two Impairment Poor posture Senior Care Goal (LTG) Pt will be able to demonstrate improved posturing without verbal cuing. (05/17/18: Pt posture is improving) LTG Duration 06/28/18 (05/17/18: Pt posture is improving) One Impairment Lacks appropriate self care program. Senior Care Goal (LTG) Pt will be independent in a self fdc exercise program. (05/17/18: Pt is progressing on her HEP) LTG Duration 06/28/18 (05/17/18: Pt is progressing on her HEP) Progress Towards Goals Progress Towards Goals Progressing Toward Goals Progress Comments Goal #2 Improving: Pt has good awareness of proper posturing . Goal #4 Pt able to get up/ down from the floor in kneeling using her hands to push. Assessment Summary Assessment Pt back pain is intermittent. She is able to do wall posturing but has difficulty due to kyphosis. Recheck Grid standing posture. She appears to have a good understanding of trunk ex's to reduce stiffness and pain with prolonged sitting. Further LE strengthening needed for greater ease with getting up/down from floor. Physical Therapy Plan Frequency and Duration Frequency of Treatment 2x/Week Plan of Care Start Date 04/13/18 Plan of Care End Date 06/28/18 Next Visit Focus/Plan Next Visit Plan Review Gastroc stretch and issue HEP. Practice proper transfer up/down from floor. Add knee flex ROM and CCK strengthening ex's to aid pt in getting up/down from the floor. End with cold pack if needed. Next visit to finalize HEP and possible DC.
--- NOTE | 2018-06-07 15:02 | PT.OPDS ---
Current Diagnoses Postural lordosis, site unspecified (06/07/18) Other osteoporosis without current pathological fracture (06/07/18) Encounter for therapeutic drug level monitoring (06/07/18) Provider Visit Care Team Role Provider Type Mike Nation MD Attending Provider Non-Staff Specialty: Family Practice Address: [address] [place] [address], [phone] Fax: Email: Visit Number Visit Number 9 Discharge Summary PT-OP-B Current Condition Start: 04/12/18 14:51 Freq: Status: Active Protocol: Document 04/13/18 11:22 LRN (Rec: 04/13/18 12:46 LRN [id number]) Current Condition History of Current Condition Onset Date 3 yrs ago Current Complaints If posture is changed like its supposed to be she has pain. History of Current Condition 3 yrs ago within a 4 month period had 3 vertebra fractures (kyphoplasty only after the first fracture). 1st time was reaching to remove a blouse from behind a door. 2nd time was pulling self up into a boat. 3rd time not sure but thinks it was stepping up into a bus, using railing to pull self up. Fracture in upper, mid and lower back. Currently she has pain after any prolonged positioning or when trying to return to a more normal posture positioni. PMH: Blood Clots 6-7 yrs ago. On Blood thinners. TKA: 6 yrs ago. Depression with meds and therapy. Osteoporosis with neck and back pain. Prior Treatments and Tests Forteo injections for osteoporosis in the abdomen daily for 2 yrs with + response, currently taking Proleia injections for osteoporosis 1x/6 months. Future Testing and Treatments Planned Yearly check of bone density. Treatment Goals Patient/Caregiver Goals Couple of sessions to Learn exercises to improve posture and reduce stiffness and pain with prolonged positioning. Agreeable to up to 5 treatments as needed to be placed on HEP. Pt goal is to improve appearance to avoid hunching over and be able to maintain her posture like she should have it. Prior Functional Status Baseline Function- ADL's Independent Baseline Function- Mobility Independent Current Functional Impairments (Reported) Functional Limitations- ADL's Lifting Twisting (dressing, cleaning, cooking) Limited with head movement affecting driving. Functional Limitations- Mobility/Gait Limited 2 miles hiking due to becoming sore and tired. Functional Limitations- Recreation/ Boating and living on a [employer]obbies sailboat for 3 months of the year (August - November). Personal Factors Other Personal Factors That May Effect Age is 65+ Therapy/Recovery Lives on boat Osteoporosis Depression Spinal fracture history. PT-OP-C Subjective Start: 04/12/18 14:51 Freq: Status: Active Protocol: Document 06/07/18 09:02 LRN (Rec: 06/07/18 09:48 LRN [id number]) OP-PT Subjective Patient Comments Patient Comments No complaints. No pain, no ice/heat after therapy. Patient Questionnaires Oswestry Low Back Index Oswestry Score 3 Oswestry Impairment 1 to 19% Impaired (Score 1-19) OP-PT Pain Assessment Pain Assessment Grid Paper Pain Assessment Grid Completed Yes Location Low back Intensity 0 Scale Used Numeric (1 - 10) Mid back Intensity 0 Scale Used Numeric (1 - 10) Upper Back Intensity 0 Scale Used Numeric (1 - 10) PT-OP-F Manual Assessment Start: 04/12/18 14:51 Freq: Status: Active Protocol: Document 04/13/18 11:22 LRN (Rec: 04/13/18 17:08 LRN [id number]) Manual Assessments Soft Tissue Assessment Soft Tissue Mobility Assessment Tenderness is present at T9 Spinous process and facet joint region on the left. PT-OP-H Neuro Start: 04/12/18 14:51 Freq: Status: Active Protocol: Document 04/13/18 11:22 LRN (Rec: 04/13/18 17:08 LRN [id number]) Sensation Evaluation Gross Sensation Gross Sensation WNL PT-OP-J Posture/Palpation/Skin Start: 04/12/18 14:51 Freq: Status: Active Protocol: Document 05/31/18 09:49 LRN (Rec: 05/31/18 12:22 LRN [id number]) Posture Evaluation Comments Posture Comments Wall to Tragus 6.5 (16.5 cm). Norm is 10 cm. PT-OP-K Range of Motion Start: 04/12/18 14:51 Freq: Status: Active Protocol: Document 06/07/18 09:02 LRN (Rec: 06/07/18 12:25 LRN [id number]) Cervical Spine Range of Motion Cervical Spine Active Degrees Testing Position Sitting Flexion 32 Extension 40 Rotation Left 49 Rotation Right 45 Lateral Flexion Left 22 Lateral Flexion Right 18 ROM Limitations Soft Tissue Tightness Shoulder Goniometric Range of Motion Shoulder ROM Limitations Comments BILATERAL Shoulder: Flex is 140 deg's, Reaching behind the back to level of T7, Reaching reaching behind the head to T3. PT-OP-M Strength Start: 04/12/18 14:51 Freq: Status: Active Protocol: Document 04/13/18 11:22 LRN (Rec: 04/13/18 17:08 LRN [id number]) Trunk Strength Trunk Manual Muscle Testing Comments Deferred formal MMT due to pt osteoporosis and history of fractures. Pt trunk strength is at least 3/5 without onset of pain. PT-OP-T Assessment and Plan Start: 04/12/18 14:51 Freq: Status: Active Protocol: Document 06/07/18 09:02 LRN (Rec: 06/07/18 12:25 LRN [id number]) Physical Therapy Assessment Goals Four Impairment Unable to get up/down from floor (knees don't work) Arterial Embalmer Goal (LTG) Pt will be able to demonstrate the best method for getting up/down from the floor with least amount of pain/ discomfort and proper Bilateral TKA joint protection . LTG Duration 06/28/18 GOAL MET Three Impairment Decreased postural stabilization and core strength. Detention Goal (LTG) Pt will be able to change trunk position with minimal onset of pain and minimize pain onset with functional activities and the need to lie down to relieve pain. LTG Duration 05/25/18 GOAL MET. Two Impairment Poor posture Arterial Embalmer Goal (LTG) Pt will be able to demonstrate improved posturing without verbal cuing. LTG Duration 06/28/18 GOAL MET One Impairment Lacks appropriate self care program. Arterial Embalmer Goal (LTG) Pt will be independent in a self detention exercise program. LTG Duration 06/28/18 GOAL MET Assessment Summary Assessment Pt has responded very well to physical therapy and has met all her goals. She has no complaints of pain with getting up/down from the floor and has no complaints of pain in general. She is now ready to be discharged from therapy and placed on and independent home exercise program. Physical Therapy Plan Discharge Physical Therapy Discharge Reasons Goals Met Discharge Comments Pt is interested in returning to physical therapy in 3 months for progression of her HEP and a recheck. If she is having onset of pain I feel this would be appropriate. Thank you for your referral.
== END 2018-11-22 14:11 | disposition home or self-care (01) ==
LOC: PHYS 09:00
PROVIDERS: Visit Provider Family Medicine
DX: M81.8 Other osteoporosis without current pathological fracture (principal); Z51.81 Encounter for therapeutic drug level monitoring; M40.40 Postural lordosis, site unspecified
CPT/HCPCS: 97110; 97161; 97530; 97535

== ENCOUNTER → 2018-08-07 10:12 | Outpatient (CLI) | payer MEDICARE, SELFPAY ==
[2018-08-07 11:19] LABS: Add Manual Diff / Slide Review NO; Basophils Absolute Auto 100 /uL (0-100); Basophils Percent Auto 1.2 % (0-2); Eosinophils Absolute Auto 200 /uL (0-450); Hematocrit 42.6 % (36-46); Hemoglobin 14.4 g/dL (12.0-16.0); Lymphocytes Absolute Auto 800 /uL (1100-4500); Mean Corpuscular HGB Conc 33.7 % (30-36); Mean Corpuscular Hemoglobin 32.4 PG (26-34); Mean Corpuscular Volume 96.1 fL (80-100); Monocytes Absolute Auto 400 /uL (0-900); Monocytes Percent Auto 7.6 % (3-14); Neutrophils Absolute Auto 3800 /uL (1500-7000); Neutrophils Percent Auto 72.2 % (50-75); Platelet Count 267 X10^3/uL (150-400); Red Blood Cell Count 4.43 X10^6/uL (4.0-5.2); Red Cell Distribution Width 13.9 % (11.6-14.8); White Blood Cell Count 5.3 X10^3/uL (4.5-11.0)
[2018-08-07 11:57] LABS: D Dimer < 200 ng/mL (<230)
== END ==
PROVIDERS: Family Provider Family Medicine; PCP Family Medicine; Visit Provider Internal Medicine Hematology & Oncology
DX: Z86.718 Personal history of other venous thrombosis and embolism (principal)
CPT/HCPCS: 36415; 85025; 85379

== ENCOUNTER → 2018-08-27 10:53 | Outpatient (REF) | payer MEDICARE, SELFPAY ==
[2018-08-27 12:19] LABS: Influenza A and B by PCR Rapid Negative (Negative)
== END ==
LOC: LAB 10:53
PROVIDERS: Family Provider Family Medicine; PCP Family Medicine; Visit Provider Family Medicine
DX: R05 Cough (principal); R52 Pain, unspecified
CPT/HCPCS: 87400

== ENCOUNTER → 2018-09-03 07:21 | Outpatient (CLI) | payer MEDICARE, SELFPAY ==
--- NOTE | 2018-09-03 | DI.MG.S_ITS ---
BILATERAL DIGITAL SCREENING MAMMOGRAM 3D/2D WITH CAD: 09/03/2018 CLINICAL: Routine screening. Comparison is made to exams dated: 08/25/2016 mammogram, 02/04/2008 mammogram, and 10/11/2001 mammogram - [facility]. The tissue of both breasts is heterogeneously dense. This may lower the sensitivity of mammography. Current study was also evaluated with a Computer Aided Detection (CAD) system. There is possible architectural distortion in the left breast anterior depth central to the nipple seen on the craniocaudal view only. No other significant masses, calcifications, or other findings are seen in either breast. IMPRESSION: INCOMPLETE: NEEDS ADDITIONAL IMAGING EVALUATION The possible architectural distortion in the left breast is indeterminate. Addtional imaging with possible ultrasound is recommended. This exam was interpreted at Station ID: [id number]. NOTE: For mammograms, a report in lay terms will be sent to the patient. Approximately 15% of breast malignancies will not be visualized mammographically. In the management of a palpable breast mass, a negative mammogram must not discourage biopsy of a clinically suspicious lesion. Electronically Signed By: Ben brown/:09/04/2018 08:15:12 letter sent: Additional Imaging Needed ACR BI-RADS Category 0: Incomplete 3340F
== END ==
PROVIDERS: PCP Family Medicine; Visit Provider Family Medicine
DX: Z12.31 Encounter for screening mammogram for malignant neoplasm of breast (principal)
CPT/HCPCS: 77063; 77067

== ENCOUNTER → 2018-12-06 08:01 | Outpatient (CLI) | payer MEDICARE, SELFPAY ==
--- NOTE | 2018-12-06 | DI.US.S_ITS ---
LIMITED ULTRASOUND OF LEFT BREAST: 12/06/2018 CLINICAL: Patient returns today to evaluate an asymmetry in the left breast. Comparison is made to exams dated: 12/06/2018 mammogram, 09/03/2018 mammogram, 08/25/2016 mammogram, and 02/04/2008 mammogram - [facility]. Color flow and real-time ultrasound of the left breast 11-1 o'clock, 5-7 o'clock, and retroareolar regions were performed. Chambers scale images of the real-time examination were reviewed. No underlying breast mass or abnormality is identified. There is no ultrasound correlate for the previously noted small residual asymmetry in the left breast anterior depth central to the nipple seen on the craniocaudal view only on the comparison diagnostic mammograms. There is no ultrasound correlate for the previously noted possible architectural distortion in the left breast anterior depth central to the nipple seen on the craniocaudal view only on comparison screening mammogram of 09/03/2018 which resolved and had the appearance of superimposed benign anatomic tissues on spot compression tomosynthesis views performed esarlier today 12/06/18. IMPRESSION: PROBABLY BENIGN No ultrasound correlate for the previously noted small residual asymmetry in the left breast anterior depth central to the nipple seen on the craniocaudal view only on comparison mammograms. A follow-up mammogram and possible ultrasound in 6 months is recommended to demonstrate stability. The patient is advised to monitor her breasts and to return sooner for re-evaluation should she feel anything grow or change. This exam was interpreted at Station ID: [id number]. Electronically Signed By: Luca Ashford M.D. ecl/:12/06/2018 10:05:15 letter sent: Followup Recommended Ultrasound BI-RADS: 3 Probably benign
--- NOTE | 2018-12-06 | DI.MG.S_ITS ---
UNILATERAL LEFT DIGITAL DIAGNOSTIC MAMMOGRAM 3D/2D WITH ADDITIONAL VIEWS: 12/06/2018 CLINICAL: Additional evaluation requested from prior study. Comparison is made to exams dated: 09/03/2018 mammogram, 08/25/2016 mammogram, and 02/04/2008 mammogram - [facility]. The tissue of left breast is heterogeneously dense. This may lower the sensitivity of mammography. Previously noted possible architectural distortion in the left breast anterior depth central to the nipple seen on the craniocaudal view only on comparison screening mammogram of 09/03/2018 has the appearance of superimposed benign anatomic tissues on spot compression tomosynthesis views. There is a small residual asymmetry left breast anterior depth central to the nipple seen on the craniocaudal view only. IMPRESSION: INCOMPLETE: NEEDS ADDITIONAL IMAGING EVALUATION Previously noted possible architectural distortion in the left breast anterior depth central to the nipple seen on the craniocaudal view only on comparison screening mammogram of 09/03/2018 has the appearance of superimposed benign anatomic tissues on spot compression tomosynthesis views. There is a small residual asymmetry left breast anterior depth central to the nipple seen on the craniocaudal view only. A targeted ultrasound is recommended and will be performed immediately following this exam. This exam was interpreted at Station ID: [id number]. NOTE: For mammograms, a report in lay terms will be sent to the patient. Approximately 15% of breast malignancies will not be visualized mammographically. In the management of a palpable breast mass, a negative mammogram must not discourage biopsy of a clinically suspicious lesion. Electronically Signed By: Luca Ashford M.D. ecl/:12/06/2018 10:01:38 ACR BI-RADS Category 0: Incomplete 3340F
== END ==
PROVIDERS: PCP Family Medicine; Visit Provider Family Medicine
DX: N64.89 Other specified disorders of breast (principal); R92.8 Other abnormal and inconclusive findings on diagnostic imaging of breast
CPT/HCPCS: 76642; 77065; G0279

== ENCOUNTER → 2019-06-25 14:22 | Outpatient (CLI) | payer MEDICARE, SELFPAY ==
--- NOTE | 2019-06-25 14:44 | DI.MG.S_ITS ---
BILATERAL DIGITAL DIAGNOSTIC MAMMOGRAM 3D/2D: 06/25/2019 CLINICAL: Short term follow up of the left breast, due for bilateral imaging. Comparison is made to exams dated: 12/06/2018 mammogram, 09/03/2018 mammogram, and 08/25/2016 mammogram - [facility]. The tissue of both breasts is heterogeneously dense. This may lower the sensitivity of mammography. The possible architectural distortion in the left breast anterior depth central to the nipple seen on the screeening mammogram dated 09/03/18, but not seen on the mammogram dated 12/06/18 is not seen in additional views today. No other significant masses, calcifications, or other findings are seen in either breast. IMPRESSION: There is no mammographic evidence of malignancy. A 1 year screening mammogram is recommended. This exam was interpreted at Station ID: [id number]. NOTE: For mammograms, a report in lay terms will be sent to the patient. Approximately 15% of breast malignancies will not be visualized mammographically. In the management of a palpable breast mass, a negative mammogram must not discourage biopsy of a clinically suspicious lesion. Electronically Signed By: Amparo page/:06/25/2019 15:41:53 letter sent: Normal Exam ACR BI-RADS Category 2: Benign Finding(s) 3342F
== END ==
PROVIDERS: PCP Family Medicine; Referring Provider Family Medicine; Visit Provider Family Medicine
DX: R92.8 Other abnormal and inconclusive findings on diagnostic imaging of breast (principal)
CPT/HCPCS: 77066; G0279

== ENCOUNTER → 2021-01-11 13:22 | Outpatient (CLI) | payer MEDICARE, SELFPAY ==
[2021-01-11 16:35] LABS: COVID19 -Nasal RAPID Negative (Negative)
== END ==
PROVIDERS: PCP Family Medicine; Referring Provider Nurse Practitioner Family; Visit Provider Nurse Practitioner Family
DX: Z20.822 Contact with and (suspected) exposure to COVID-19 (principal); R19.7 Diarrhea, unspecified
CPT/HCPCS: 87635

== ENCOUNTER → 2021-12-13 14:02 | Outpatient (CLI) | payer MEDICARE, SELFPAY ==
--- NOTE | 2021-12-13 14:06 | DI.RAD.S_ITS ---
PROCEDURE: XR HAND RT MIN 3V INDICATIONS: RIGHT HAND AND WRIST PAIN TECHNIQUE: 3 views of the hand(s) acquired. COMPARISON: [facility], CR, XR WRIST RT MIN 3V, 12/13/2021, 14:09. [facility], CR, HAND 3V LEFT, 09/16/2008, 10:08. FINDINGS: Bones: No acute fracture or dislocation. Scattered trace osteoarthritic changes. Small bone fragments may be from prior injury, for example next to the 4th middle phalangeal head and 1st proximal phalangeal head. Soft tissues: No suspicious soft tissue calcifications. IMPRESSION: Wrist findings separately dictated. Scattered mild arthrosis. Small bone fragments next to the 4th middle phalangeal head and 1st proximal phalangeal head may be from prior injury. Dictated by: Jesse Anderson M.D. on 12/13/2021 at 15:40 Approved by: Jesse Anderson M.D. on 12/13/2021 at 15:43
--- NOTE | 2021-12-13 14:06 | DI.RAD.S_ITS ---
PROCEDURE: XR CHEST 2V INDICATIONS: COUGH TECHNIQUE: 2 views of the chest were acquired. COMPARISON: [facility], , CHEST 2 VIEW, 09/04/2015, 14:25. FINDINGS: Surgical changes and devices: There are prior kyphoplasty involving T8 and L1 vertebral bodies. Lungs and pleura: Lungs are clear. No pleural effusions or pneumothorax. Mediastinum: Mediastinal contours are normal. Heart size is normal. Bones and chest wall: No suspicious bony abnormalities. Soft tissues appear unremarkable. Chronic appearing compression deformities at T8, T9, T10 and L1 levels are seen with moderate kyphosis. IMPRESSION: No acute cardiopulmonary pathology. Dictated by: David Gallardo M.D. on 12/13/2021 at 16:24 Approved by: David Gallardo M.D. on 12/13/2021 at 16:28
--- NOTE | 2021-12-13 14:06 | DI.RAD.S_ITS ---
PROCEDURE: XR WRIST RT MIN 3V INDICATIONS: RIGHT HAND AND WRIST PAIN TECHNIQUE: 4 views of the wrist were acquired. COMPARISON: None. FINDINGS: Bones: Advanced arthrosis with probable geodes in the STT and 1st CMC joints. Carpal bones are normally aligned. Soft tissues: No suspicious soft tissue calcifications. 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 Dictated by: Jesse Anderson M.D. on 12/13/2021 at 15:43 Approved by: Jesse Anderson M.D. on 12/13/2021 at 15:44
== END ==
PROVIDERS: PCP Family Medicine; Referring Provider Family Medicine; Visit Provider Family Medicine
DX: M18.11 Unilateral primary osteoarthritis of first carpometacarpal joint, right hand (principal); M79.641 Pain in right hand; M19.041 Primary osteoarthritis, right hand; R05.3 Chronic cough
CPT/HCPCS: 71046; 73110; 73130

== ENCOUNTER → 2021-12-28 12:58 | Outpatient (CLI) | payer MEDICARE, SELFPAY ==
--- NOTE | 2021-12-28 12:59 | DI.MG.S_ITS ---
BILATERAL DIGITAL SCREENING MAMMOGRAM 3D/2D WITH CAD: 12/28/2021 CLINICAL: Routine screening. Comparison is made to exams dated: 06/25/2019 mammogram, 09/03/2018 mammogram, and 08/25/2016 mammogram - [facility]. There are scattered areas of fibroglandular density in both breasts (category b / 25%-50% glandular tissue). Current study was also evaluated with a Computer Aided Detection (CAD) system. No significant masses, calcifications, or other findings are seen in either breast. There has been no significant interval change. IMPRESSION: NEGATIVE There is no mammographic evidence of malignancy. A 1 year screening mammogram is recommended. Based on the Tyrer Cuzick model (a risk assessment model) the patient's lifetime risk is 2.8% and her 10 year risk is 2.8%. According to the ACR, ACS, and NCCN guidelines, an annual breast MRI exam along with mammogram is recommended if the patient's lifetime risk is 20% or greater. This exam was interpreted at Station ID: [id number]. NOTE: For mammograms, a report in lay terms will be sent to the patient. Approximately 15% of breast malignancies will not be visualized mammographically. In the management of a palpable breast mass, a negative mammogram must not discourage biopsy of a clinically suspicious lesion. Electronically Signed By: Love helton/wilton:12/28/2021 15:56:39 letter sent: Normal Exam ACR BI-RADS Category 1: Negative 3341F
== END ==
PROVIDERS: PCP Family Medicine; Referring Provider Family Medicine; Visit Provider Family Medicine
DX: Z12.31 Encounter for screening mammogram for malignant neoplasm of breast (principal)
CPT/HCPCS: 77063; 77067

== ENCOUNTER → 2022-06-08 17:16 | Outpatient (CLI) | payer MEDICARE, SELFPAY ==
[2022-06-08 18:31] LABS: Influenza A - CEPHEID Flu A NEGATIVE (NEGATIVE); Influenza B - CEPHEID Flu B NEGATIVE (NEGATIVE); Respiratory Syncytial Virus Negative (Negative)
[2022-06-08 18:35] LABS: COVID-19 CEPHEID 4-PLEX PCR Negative (Negative)
== END ==
PROVIDERS: PCP Family Medicine; Visit Provider Registered Nurse
DX: J06.9 Acute upper respiratory infection, unspecified (principal)
CPT/HCPCS: 0241U

== ENCOUNTER → 2022-07-19 13:57 | Outpatient (CLI) | payer MEDICARE, SELFPAY ==
--- NOTE | 2022-07-19 | DI.CT.S_ITS ---
PROCEDURE: CT CHEST WO CON INDICATIONS: CHRONIC COUGH TECHNIQUE: Noncontrast 5 mm thick sections acquired from the pulmonary apices to the posterior costophrenic angles. 1 mm lung window, 5 mm thick coronal and sagittal and 7 mm axial MIP reformats were then acquired. For radiation dose reduction, the following was used: automated exposure control, adjustment of mA and/or kV according to patient size. COMPARISON: None. FINDINGS: Image quality: Excellent. Lungs and pleura: No acute air space opacities. No pleural effusions or pneumothorax. Central and peripheral airways are patent and normal in caliber. Mild bronchial thickening. Pleural parenchymal bands in the lung bases. Mediastinum: Heart size is enlarged. No pericardial effusion. No mediastinal adenopathy by size criteria. Thoracic aorta and central pulmonary arteries are normal in size. Esophagus is normal in caliber. Small hiatal hernia. Bones and chest wall: Heterogeneous sclerosis of the sternal manubrium. Stable kyphoplasty at L1 and T8. No axillary or supraclavicular adenopathy by size criteria. Thyroid gland is unremarkable . Abdomen: Small Bochdalek hernia. IMPRESSION: Peribronchial cuffing, likely infectious or inflammatory bronchitis. Heterogeneous sclerosis of the sternal manubrium. Correlate with history of malignancy. If positive, findings would be highly concerning for metastatic disease. If negative, consider MRI with contrast for further characterization. 1 Dictated by: Cruzito Sarmiento M.D. on 07/19/2022 at 14:50 Approved by: Cruzito Sarmiento M.D. on 07/19/2022 at 14:58
== END ==
PROVIDERS: PCP Family Medicine; Referring Provider Family Medicine; Visit Provider Family Medicine
DX: R05.3 Chronic cough (principal); K44.9 Diaphragmatic hernia without obstruction or gangrene
CPT/HCPCS: 71250

== ENCOUNTER → 2022-07-20 08:52 | Outpatient (CLI) | payer MEDICARE, SELFPAY ==
--- NOTE | 2022-07-21 14:56 | PM.PFT.1 ---
Pulmonary Function Test Referral & Results Date Patient Seen: 07/20/22 Requesting provider: Jean Pierre Mackay Results: The spirometry demonstrates an FVC of 2.19 L which is 82% of predicted. The FEV1 was measured at 1.55 L which is 78% of predicted. The FEV1/FVC ratio was 71 which is 94% of predicted. Following the administration of bronchodilator there was 11% improvement in FEV1 and a 40% improvement in FEF 25-75%. Lung volumes show an SVC of 2.78 L which is 105% of predicted. The diffusing capacity was measured at 16.83 which is 73% of predicted. No hemoglobin value was provided, so no correction for potential anemia could be made, if appropriate. The maximum voluntary ventilation was reduced Interpretation: This study demonstrates mild obstructive lung disease based on reduction FEV1. There is some evidence of benefit post bronchodilator especially in small airway flow as demonstrated by the improvement in the FEF 25-75% as above There is a mild reduction diffusing capacity as well suggesting the presence of disease at the capillary alveolar level Clinical correlation suggested
== END ==
PROVIDERS: PCP Family Medicine; Referring Provider Family Medicine; Visit Provider Family Medicine
DX: R05.3 Chronic cough (principal); Z87.891 Personal history of nicotine dependence; J98.8 Other specified respiratory disorders
CPT/HCPCS: 94060; 94726; 94729

== ENCOUNTER → 2022-08-09 13:00 | Outpatient (CLI) | payer MEDICARE, SELFPAY ==
--- NOTE | 2022-08-09 | DI.MRI.S_ITS ---
PROCEDURE: MR CHEST WO/W CON INDICATIONS: FOLLOW TO CT CHEST TECHNIQUE: Noncontrast coronal T1 spin echo and STIR, sagittal T1 spin echo with fat saturation and STIR, axial T1 spin echo with fat saturation and T2 fast spin echo with fat saturation and T1 flash. After the administration of contrast, axial/sagittal/coronal T1 spin echo with fat saturation through the sternum. Diffusion-weighted imaging was also performed. COMPARISON: [facility], CT, CT CHEST WO CON, 07/19/2022, 14:02. FINDINGS: Image quality: Excellent. Bones: The manubrium is normal in signal intensity without edema or a marrow replacing mass. Focal mild chronic cortical irregularity and sclerosis seen on prior CT may be related to a remote prior manubrial fracture. No suspicious intraosseous enhancement. Soft tissues: No suspicious enhancing soft tissue mass. A [id number] cyst is partially visualized in the posterior left hepatic lobe. The musculature of the anterior chest wall is within normal limits. 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 No suspicious marrow replacing mass or abnormal osseous enhancement. Approved by: Ildefonso Young M.D. on 08/09/2022 at 16:22
== END ==
PROVIDERS: PCP Family Medicine; Referring Provider Family Medicine; Visit Provider Family Medicine
DX: M89.8X8 Other specified disorders of bone, other site (principal)
CPT/HCPCS: 71552

== ENCOUNTER 2022-11-26 09:10 | Emergency (ER) | payer MEDICARE, SELFPAY ==
[2022-11-26 09:14] VITALS: BP 150/78; PULSE 70; RESP 14; TEMP 36.5; O2SAT 99; BMI 24.7
--- NOTE | 2022-11-26 09:18 | ED_ITS ---
HPI - General Adult General Chief complaint: Extremity Injury, Lower Stated complaint: sharp pain on rt leg Time Seen by Provider: 11/26/22 09:14 History of Present Illness HPI narrative: 77-year-old female nonsmoker with history of DVT on Xarelto presents with a chief complaint of low back pain along with episodes of numbness, tingling and pain which radiates down her right leg. These episodes are without obvious provocation or palliation. She states that when the pain is there her leg feels weak and like it will give out on her. She denies any fever or chills. She denies trauma or injury. She denies loss of control of bowel or bladder. She denies any change in medications or diet. She is otherwise well and free of complaint Related Data Home Medications Medication Instructions Recorded Confirmed calcium carbonate 600 mg calcium 1,200 mg PO ##0 06/17/16 04/14/22 (1,500 mg) tablet cholecalciferol (vitamin D3) 50 1 tab PO QDAY ##0 06/17/16 04/14/22 mcg (2,000 unit) tablet (Vitamin D3) rivaroxaban 10 mg tablet (Xarelto) 10 mg PO QDAY ##0 07/04/17 04/14/22 denosumab 60 mg/mL subcutaneous 60 mg SUBCUT [id number] 01/16/18 04/14/22 syringe (Prolia) omeprazole 20 mg tablet,delayed 20 mg PO DAILY 01/20/18 04/14/22 release Previous Rx's Medication Instructions Recorded albuterol sulfate 90 mcg/actuation 2 puff inhalation Q4-6H PRN cough, 06/08/22 aerosol inhaler shortness of breath or wheezing #6.7 grams inhalational spacing device #1 ea 06/08/22 (BreatheRite MDI Spacer) fluoxetine 20 mg tablet 20 mg PO QAM #30 tabs 11/14/22 trazodone 50 mg tablet 50 mg PO .QHS PRN insomnia #30 tabs 11/14/22 cyclobenzaprine 10 mg tablet 10 mg PO TID PRN muscle spasm #14 11/26/22 tabs gabapentin 300 mg capsule 300 mg PO BEDTIME #14 caps 11/26/22 methylprednisolone 4 mg tablets in See Rx Instructions PO .COMPLEX 11/26/22 a dose pack (Medrol (Pedro Pablo)) #21 ea Allergies Allergy/AdvReac Type Severity Reaction Status Date / Time iodine Allergy Intermediate SWELLING, Verified 11/26/22 09:19 RASH TOPICAL only Review of Systems Review of Systems Narrative: GENERAL: Denies chills, fatigue, malaise, fever, sweats. HEENT: Denies sinus pain, ear pain, sore throat, difficulty swallowing, dizziness. RESPIRATORY: Denies dyspnea, cough, wheezing, hemoptysis, sputum. CARDIOVASCULAR: Denies chest pain, palpitations, orthopnea, edema, GASTROINTESTINAL: Denies nausea, vomiting, abdominal pain, diarrhea, constipation, melena. : Denies dysuria, frequency, incontinence, hematuria, urinary retention. MUSCULOSKELETAL: See HPI SKIN: Denies rash, skin lesions, or other NEUROLOGIC: See HPI PSYCHIATRIC: No concerning psychosocial issues. 12 point review of systems is negative except for those stated above Patient History Social History Smoking Status: Former smoker Smoking Status: Former smoker Exam Narrative Exam Narrative: GENERAL: 77[] year old patient appears stated age. Well-developed patient, in mi ld distress. HEAD: Atraumatic. Normocephalic. EYES: Pupils equal round and reactive. Extraocular motions intact. No scleral icterus. No injection or drainage. ENT: Nose without bleeding, purulent drainage. Throat without erythema, tonsillar hypertrophy or exudate. Airway patent. NECK: Trachea midline. Non tender CARDIOVASCULAR: Regular rate and rhythm without murmurs, gallops, or rubs. RESPIRATORY: Clear to auscultation. Breath sounds equal bilaterally. No wheezes, rales, or rhonchi. GASTROINTESTINAL: Abdomen soft, non-tender, nondistended. EXTREMITIES: No edema or joint tenderness. BACK: muffler tender but free of any obvious external abnormalities. Patient exam notes decreased range of motion and muscle spasm, but no CVA tenderness, or vertebral point tenderness. There are no symptoms of cauda equina such as saddle anesthesia, and decreased reflexes, decreased sensation or strength. NEURO: AOx3. SKIN: No rash or erythema of visible areas Initial Vital Signs Initial Vital Signs: Vital Signs Temperature 97.7 F 11/26/22 09:14 Pulse Rate 70 11/26/22 09:14 Respiratory Rate 14 11/26/22 09:14 Blood Pressure 150/78 H 11/26/22 09:14 Pulse Oximetry 99 07/29/23 09:14 Oxygen Delivery Method Room Air 11/26/22 09:14 Course Orders Ordered: ED Orders 11/26/22 09:24 MR lumbar spine wo/w con Stat 11/26/22 09:36 Complete Blood Count AUTO DIFF Stat Comprehensive Metabolic Panel Stat Prothrombin Time INR Stat Vital Signs Vital signs: Vital Signs - 8 hr 11/26/22 09:14 11/26/22 09:20 Temperature 97.7 F Pulse Rate 70 Pulse Rate [Right Dorsalis Pedis] 70 Respiratory Rate 14 Blood Pressure 150/78 H Pulse Oximetry 99 Oxygen Delivery Method Room Air Medical Decision Making Lab Data 11/26/22 09:36 11/26/22 09:36 Labs: Lab Results 11/26/22 11/26/22 11/26/22 Range/Units 09:36 09:36 09:36 WBC 3.5 L (4.5-11.0) X10^3/uL RBC 4.27 (4.0-5.2) X10^6/uL Hgb 13.6 (12.0-16.0) g/dL Hct 40.2 (36-46) % MCV 94.2 (80-100) fL MCH 31.8 (26-34) PG MCHC 33.8 (30-36) % RDW 13.5 (11.6-14.8) % Plt Count 244 (150-400) X10^3/uL Neut % (Auto) 45.1 L (50-75) % Lymph % (Auto) 27.1 (25-40) % [place] % (Auto) 11.6 (3-14) % Eos % (Auto) 14.9 H (2-4) % Baso % (Auto) 1.3 (0-2) % Neut # (Auto) 1600 (0931-0500) /uL Lymph # (Auto) 900 L (2546-6003) /uL [place] # (Auto) 400 (0-900) /uL Eos # (Auto) 500 H (0-450) /uL Baso # (Auto) 0 (0-100) /uL PT 11.6 (10.1-12.7) SECONDS INR 1.0 (0.9-1.3) Sodium 138 (137-145) mmol/L Potassium 4.0 (3.4-5.1) mmol/L Chloride 106 (98-107) mmol/L Carbon Dioxide 28 (22-32) mmol/L BUN 16 (7-17) mg/dL Creatinine 0.61 (0.52-1.04) mg/dL Estimated GFR > 60 (>60) mL/min BUN/Creatinine Ratio 26.2 H (6-22) Glucose 93 (80-110) mg/dL Calcium 8.7 (8.4-10.2) mg/dL Total Bilirubin 0.5 (0.2-1.3) mg/dL AST 26 (14-36) IU/L ALT 17 (<35) IU/L Alkaline Phosphatase 40 (38-126) U/L Total Protein 6.5 (6.3-8.2) g/dL Albumin 3.8 (3.5-5.0) g/dL Globulin 2.7 (1.7-4.1) g/dL Albumin/Globulin Ratio 1.4 (1.0-2.8) MDM Narrative Medical decision making narrative: CC: 77-year-old female with low back pain and episodic radicular pain Complicating co-morbidities: Age, anticoagulation Data collected from: Patient Medical records reviewed: Prior notes reviewed in our EMR Differential considered, but not limited to: Epidural hematoma versus epidural abscess versus does problem versus other musculoskeletal Exam documented above, pertinent findings include: Heart rate regular, lungs clear, abdomen soft, no saddle anesthesia, no current lower extremity numbness, tingling or weakness, no reproducible low back pain Lab Test results independently reviewed as above. Pertinent findings: Imaging studies independently reviewed: Lumbar MRI with IV contrast notes No acute findings, specifically no epidural hematoma or abscess is present. There is evidence of multilevel degenerative disc disease and arthropathy resulting in moderate central canal stenosis at L4 and L5 Discussion: 77-year-old female with reassuring history and physical exam with mild episodes of low back pain and episodes of radicular type symptoms including numbness and tingling down her right leg. Given the spontaneous presentation and her use of anticoagulants she was ruled out for epidural hematoma which thankfully was accomplished with the use of a lumbar MRI with IV contrast. Given her mild radicular type symptoms we talked about the use of various medications including gabapentin and a steroid taper. She plans to follow with her primary care doctor later this week and return precautions were discussed which include but are not limited to lower extremity weakness, fever or chills as well as other bothersome symptoms Disposition: see below, along with detailed discharge instructions that have been reviewed with patient as well as indications for ED re-evaluation and additional outpatient follow up Discharge Plan Departure Patient Disposition: Home Clinical Impression: Lumbar radiculopathy, right Instructions: DI for Lumbar Radiculopathy Activity Restrictions/Additional Instructions: *You have been diagnosed with [ acute Right lumbar radiculopathy] *What to do: *Please continue to take your regular medications as directed. [x] New medication prescriptions sent to your pharmacy: [[facility] ] [ ] New medication written as a paper prescription [ ] No new medications given *Please follow up with your primary care provider in 2-3 days, call for an appointment. Let them know you were seen in the Emergency Department and that we ask that you be seen in follow up. We will electronically transmit a record of today's note if your PCP is in our system *If you do not have a primary care provider please contact the [facility] Resource line at [phone]. They will ask some questions about your medical history and help get you set up with a doctor in the community. *Return to Emergency Department if you should have any new, worsening or concerning symptoms, such as [fever greater than 101 F, shaking chills, worsening pain, persistent vomiting or other bothersome symptoms] Prescriptions: New cyclobenzaprine 10 mg tablet 10 mg PO TID PRN (Reason: muscle spasm) Qty: 14 0RF gabapentin 300 mg capsule 300 mg PO BEDTIME Qty: 14 0RF methylprednisolone [Medrol (Pedro Pablo)] 4 mg tablets,dose pack See Rx Instructions .ROUTE .COMPLEX Qty: 21 0RF Rx Instructions: orally per package directions No Action albuterol sulfate 90 mcg/actuation HFA aerosol inhaler 2 puff inhalation Q4-6H PRN (Reason: cough, shortness of breath or wheezing) Qty: 6.7 0RF (DME) BreatheRite MDI Spacer Spacer See Rx Instructions .Route Qty: 1 0RF Rx Instructions: As directed denosumab [Prolia] 60 mg/mL syringe 60 mg SUBCUT [id number] omeprazole 20 mg tablet,delayed release (DR/EC) 20 mg PO DAILY calcium carbonate 600 MG tablet 1,200 mg PO Qty: 0 cholecalciferol (vitamin D3) [Vitamin D3] 2,000 UNIT tablet 1 tab PO QDAY Qty: 0 rivaroxaban [Xarelto] 10 MG tablet 10 mg PO QDAY Qty: 0 fluoxetine 20 mg tablet 20 mg PO QAM Qty: 30 0RF trazodone 50 mg tablet 50 mg PO .QHS PRN (Reason: insomnia) Qty: 30 0RF Referrals: Jean Pierre Mackay MD [Primary Care Provider] - Stand Alone Forms: Patient Portal/API
[2022-11-26 09:20] VITALS: PULSE 70
--- NOTE | 2022-11-26 09:24 | DI.MRI.S_ITS ---
PROCEDURE: MR LUMBAR SPINE WO/W CON INDICATIONS: radicular symptoms, on xarelto TECHNIQUE: Noncontrast sagittal T1 spin echo and T2 fast spin echo, sagittal STIR, axial T1 and T2 fast spin echo through the lumbar spine. In cases with scoliosis, additional coronal T2 fast spin echo may be performed. After the administration of contrast, sagittal and axial T1 spin echo with fat saturation through the lumbar spine. COMPARISON: None. FINDINGS: Image quality: Excellent. Alignment and curvature: There is normal bony alignment. Marrow: Old compression fractures noted at T11 and L1 without marrow edema. Small retropulsed fracture fragment noted at L1 without central stenosis. Spinal cord: Conus medullaris terminates at the L1 level. Visualized spinal cord demonstrates normal signal, without suspicious enhancement. No epidural enhancement or epidural hematoma Paraspinous soft tissues: Right renal simple cortical cyst At the disc levels, there is multilevel degenerative disc disease and arthropathy resulting in right lateral recess effacement at L2-3, moderate central stenosis L4-5, and mild central stenosis L5-S1 IMPRESSION: No acute findings. No epidural hematoma or abscess present. Multilevel degenerative disc disease and arthropathy results in moderate central stenosis L4-5 Approved by: Jose Alejandre M.D. on 11/26/2022 at 10:17
[2022-11-26 09:44] LABS: Add Manual Diff / Slide Review NO; Basophils Absolute Auto 0 /uL (0-100); Basophils Percent Auto 1.3 % (0-2); Eosinophils Absolute Auto 500 /uL (0-450); Eosinophils Percent Auto 14.9 % (2-4); Hematocrit 40.2 % (36-46); Hemoglobin 13.6 g/dL (12.0-16.0); Lymphocytes Absolute Auto 900 /uL (1100-4500); Lymphocytes Percent Auto 27.1 % (25-40); Mean Corpuscular HGB Conc 33.8 % (30-36); Mean Corpuscular Hemoglobin 31.8 PG (26-34); Mean Corpuscular Volume 94.2 fL (80-100); Monocytes Absolute Auto 400 /uL (0-900); Monocytes Percent Auto 11.6 % (3-14); Neutrophils Absolute Auto 1600 /uL (1500-7000); Neutrophils Percent Auto 45.1 % (50-75); Platelet Count 244 X10^3/uL (150-400); Red Blood Cell Count 4.27 X10^6/uL (4.0-5.2); Red Cell Distribution Width 13.5 % (11.6-14.8); White Blood Cell Count 3.5 X10^3/uL (4.5-11.0)
[2022-11-26 09:51] LABS: Prothrombin Time 11.6 SECONDS (10.1-12.7)
[2022-11-26 09:55] LABS: Alanine Aminotransferase 17 IU/L (<35); Albumin 3.8 g/dL (3.5-5.0); Albumin Globulin Ratio 1.4 (1.0-2.8); Alkaline Phosphatase 40 U/L (38-126); Aspartate Aminotransferase 26 IU/L (14-36); BUN Creatinine Ratio 26.2 (6-22); Bilirubin Total 0.5 mg/dL (0.2-1.3); Blood Urea Nitrogen 16 mg/dL (7-17); Calcium 8.7 mg/dL (8.4-10.2); Carbon Dioxide 28 mmol/L (22-32); Chloride 106 mmol/L (98-107); Estimated Glomerular Filt Rate > 60 mL/min (>60); Globulin 2.7 g/dL (1.7-4.1); Glucose 93 mg/dL (80-110); Sodium 138 mmol/L (137-145); Total Protein 6.5 g/dL (6.3-8.2)
[2022-11-26 09:58] LABS: HEMOLYSIS 54 (0-50)
[2022-11-26 11:58] VITALS: BP 132/78; PULSE 70; RESP 16; O2SAT 99
== END 2022-11-26 12:00 | disposition home or self-care (01) ==
PROVIDERS: Emergency Provider Emergency Medicine; PCP Family Medicine
DX: M54.16 Radiculopathy, lumbar region (principal); Z79.01 Long term (current) use of anticoagulants
CPT/HCPCS: 36415; 72158; 80053; 85025; 85610; 99284

== ENCOUNTER 2022-12-24 15:34 | Emergency (ER) | payer MEDICARE, SELFPAY ==
[2022-12-24 15:39] VITALS: BP 132/63; PULSE 94; RESP 17; TEMP 36.4; O2SAT 96; BMI 24.7
[2022-12-24] MEDS: HYDROCODONE/ACET 5/325 TABLET 1 TAB PO (17:23)
--- NOTE | 2022-12-24 17:47 | ED.EXTPRO ---
HPI - Extremity Problem <ROSANNA Cabello - Last Filed: 12/25/22 11:22> General Chief complaint: Extremity Problem,Nontraumatic Stated complaint: rt leg pain Time Seen by Provider: 12/24/22 15:51 Source: patient Mode of arrival: Ambulatory History of Present Illness HPI Narrative: This is a 77-year-old female with history of right-sided sciatica and some low back pain which has been having flares for the last month. She was seen in the emergency department on 11/26/2022 and had a lumbar spine MRI, her primary care provider is Dr. Mackay and she has been referred to Dr. Flores but has not been able to be seen yet. She endorses having restarted a prior prescription of steroids, on chart review it appears that she continued with a Medrol pack, states this started to help but she only took 1 dose. She still has gabapentin and this has been helpful but she states that her pain is still severe to the anterior of her right thigh. Denies any weakness, denies any new trauma, denies any incontinence or urinary retention. Denies urinary frequency or urgency. Denies any fever or chills. She is anticoagulated on Xarelto for history of DVT. She states that the numbness and tingling goes down to her foot sometimes but stops there. Denies any other medication changes. States she has an upcoming appointment but has not been able to be seen yet and presented for help with pain control. Related Data Home Medications Medication Instructions Recorded Confirmed calcium carbonate 600 mg calcium 1,200 mg PO ##0 06/17/16 04/14/22 (1,500 mg) tablet cholecalciferol (vitamin D3) 50 1 tab PO QDAY ##0 06/17/16 04/14/22 mcg (2,000 unit) tablet (Vitamin D3) rivaroxaban 10 mg tablet (Xarelto) 10 mg PO QDAY ##0 07/04/17 04/14/22 denosumab 60 mg/mL subcutaneous 60 mg SUBCUT [id number] 01/16/18 04/14/22 syringe (Prolia) omeprazole 20 mg tablet,delayed 20 mg PO DAILY 01/20/18 04/14/22 release Previous Rx's Medication Instructions Recorded albuterol sulfate 90 mcg/actuation 2 puff inhalation Q4-6H PRN cough, 06/08/22 aerosol inhaler shortness of breath or wheezing #6.7 grams inhalational spacing device #1 ea 06/08/22 (BreatheRite MDI Spacer) trazodone 50 mg tablet 50 mg PO .QHS PRN insomnia #30 tabs 11/14/22 cyclobenzaprine 10 mg tablet 10 mg PO TID PRN muscle spasm #14 11/26/22 tabs gabapentin 300 mg capsule 300 mg PO BEDTIME #14 caps 11/26/22 methylprednisolone 4 mg tablets in See Rx Instructions PO .COMPLEX 11/26/22 a dose pack (Medrol (Pedro Pablo)) #21 ea fluoxetine 20 mg tablet 20 mg PO QAM #30 tabs 12/19/22 diclofenac sodium 1 % topical gel 4 g topical QID #100 grams 12/24/22 gabapentin 300 mg capsule 300 mg PO BEDTIME #30 caps 12/24/22 hydrocodone 5 mg-acetaminophen 325 1 tab PO Q6H PRN pain #14 tabs 12/24/22 mg tablet prednisone 20 mg tablet 40 mg PO DAILY #20 tabs 12/24/22 Allergies Allergy/AdvReac Type Severity Reaction Status Date / Time iodine Allergy Intermediate SWELLING, Verified 12/24/22 15:39 RASH TOPICAL only Review of Systems <ROSANNA Cabello - Last Filed: 12/25/22 11:22> Review of Systems ROS Unobtainable: All systems reviewed & are unremarkable except as noted in HPI and below Patient History <ROSANNA Cabello - Last Filed: 12/25/22 11:22> Social History Smoking Status: Former smoker Smoking Status: Former smoker alcohol intake frequency: 0-2 drinks per day Substance Use Type: does not use Exam <ROSANNA Cabello - Last Filed: 12/25/22 11:22> Narrative Exam Narrative: Reviewed vitals signs and nursing notes. General: Pleasant, sitting upright, in no acute distress, well groomed, afebrile HEENT: symmetrical facial expressions, moist mucous membranes, neck is supple, normal range of motion CV: regular rate and rhythm, warm extremities Respiratory: normal work of breathing, without tachypnea or hypoxia. GI: abdomen soft, nondistended, without CVA tenderness bilaterally. MSK: moves all extremities, no weakness, normal tone, ambulatory without deficit, she is not have any midline low back tenderness but she does have pain to the anterior right thigh. It does not improve with palpation or worsen with palpation. Patient exam notes decreased range of motion and muscle spasm, but no CVA tenderness, or vertebral point tenderness.? There are no symptoms of cauda equina such as saddle anesthesia, and decreased reflexes, decreased sensation or strength. Skin: brisk capillary refill, without rash or wound Neuro: clear speech and normal cognition, A&O x3, GCS 15, no focal motor or sensation deficits Initial Vital Signs Initial Vital Signs: Vital Signs Temperature 97.5 F L 12/24/22 15:39 Pulse Rate 94 H 12/24/22 15:39 Respiratory Rate 17 12/24/22 15:39 Blood Pressure 132/63 12/24/22 15:39 Pulse Oximetry 96 12/24/22 15:39 Oxygen Delivery Method Room Air 12/24/22 15:39 <Rogelio Martin DO - Last Filed: 12/25/22 16:19> Initial Vital Signs Initial Vital Signs: Vital Signs Temperature 97.5 F L 12/24/22 15:39 Pulse Rate 94 H 12/24/22 15:39 Respiratory Rate 17 12/24/22 15:39 Blood Pressure 132/63 12/24/22 15:39 Pulse Oximetry 96 12/24/22 15:39 Oxygen Delivery Method Room Air 12/24/22 15:39 Course <ROSANNA Cabello - Last Filed: 12/25/22 11:22> Orders Ordered: Discontinued Medications Hydrocodone Bitart/Acetaminophen (Hydrocodone/Acet 5/325 Tablet) 1 tab PO NOW ONE Stop: 12/24/22 15:52 Last Admin: 12/24/22 17:23 Dose: 1 tab Documented By: TIMA Gabapentin (Gabapentin 300 Mg Capsule) 300 mg PO NOW ONE Stop: 12/24/22 17:46 Last Admin: 12/24/22 18:01 Dose: 300 mg Documented By: CAESAR Lidocaine (Lidocaine Patch 1 Each Adh..Patch) 1 each TOP NOW ONE Stop: 12/24/22 17:46 Last Admin: 12/24/22 18:01 Dose: 1 each Documented By: CAESAR Pantoprazole Sodium (Pantoprazole Dr 20 Mg Tablet) 20 mg PO NOW ONE Stop: 12/24/22 17:46 Last Admin: 12/24/22 18:01 Dose: 20 mg Documented By: CAESAR Prednisone (Prednisone 20 Mg Tablet) 40 mg PO NOW ONE Stop: 12/24/22 17:46 Last Admin: 12/24/22 18:01 Dose: 40 mg Documented By: CAESAR Vital Signs Vital signs: Vital Signs - 8 hr 12/24/22 15:39 Temperature 97.5 F L Pulse Rate 94 H Respiratory Rate 17 Blood Pressure 132/63 Pulse Oximetry 96 Oxygen Delivery Method Room Air <Rogelio Martin DO - Last Filed: 12/25/22 16:19> Orders Ordered: Discontinued Medications Hydrocodone Bitart/Acetaminophen (Hydrocodone/Acet 5/325 Tablet) 1 tab PO NOW ONE Stop: 12/24/22 15:52 Last Admin: 12/24/22 17:23 Dose: 1 tab Documented By: TIMA Gabapentin (Gabapentin 300 Mg Capsule) 300 mg PO NOW ONE Stop: 12/24/22 17:46 Last Admin: 12/24/22 18:01 Dose: 300 mg Documented By: CAESAR Lidocaine (Lidocaine Patch 1 Each Adh..Patch) 1 each TOP NOW ONE Stop: 12/24/22 17:46 Last Admin: 12/24/22 18:01 Dose: 1 each Documented By: CAESAR Pantoprazole Sodium (Pantoprazole Dr 20 Mg Tablet) 20 mg PO NOW ONE Stop: 12/24/22 17:46 Last Admin: 12/24/22 18:01 Dose: 20 mg Documented By: CAESAR Prednisone (Prednisone 20 Mg Tablet) 40 mg PO NOW ONE Stop: 12/24/22 17:46 Last Admin: 12/24/22 18:01 Dose: 40 mg Documented By: CAESAR Vital Signs Vital signs: Vital Signs - 8 hr 12/24/22 15:39 Temperature 97.5 F L Pulse Rate 94 H Respiratory Rate 17 Blood Pressure 132/63 Pulse Oximetry 96 Oxygen Delivery Method Room Air MDM - Extremity (Nontraumatic) <ROSANNA Cabello - Last Filed: 12/25/22 11:22> MDM Narrative Medical decision making narrative: Medical decision making narrative: CC:? 77-year-old female with low back pain and episodic radicular pain Complicating co-morbidities:? Age, anticoagulation Data collected from:? Patient Medical records reviewed:? Prior notes reviewed in our EMR Differential considered, but not limited to:? Epidural hematoma, epidural abscess, disk problem, other musculoskeletal, degenerative disc disease, osteoarthritis, cauda equina, lumbar radiculopathy Exam documented above, pertinent findings include:? Heart rate regular, lungs clear, abdomen soft, no saddle anesthesia, no current lower extremity numbness, tingling or weakness, no reproducible low back pain it intermittently shoots down her right leg. Her reflexes are intact and equal bilaterally, no urinary retention or incontinence Imaging studies independently reviewed:? Lumbar MRI with IV contrast from 11/26/2022 notes No acute findings, specifically no epidural hematoma or abscess is present.? There is evidence of multilevel degenerative disc disease and arthropathy resulting in moderate central canal stenosis at L4 and L5 Discussion: 77-year-old female with reassuring history and physical exam with mild episodes of low back pain and episodes of radicular type symptoms including numbness and tingling down her right leg.? Given the spontaneous presentation and her use of anticoagulants she was ruled out for epidural hematoma at the end of October with the use of a lumbar MRI with IV contrast.? No injury since. Her symptoms returned after she was treated with a steroid course, gabapentin and states it is the same type of pain. Given her mild radicular type symptoms we talked about the use of various medications including gabapentin and repeat steroid course with a taper. She plans to follow with her Dr. Flores later this week and return precautions were discussed which include but are not limited to lower extremity weakness, fever or chills as well as other bothersome symptoms Disposition: see below, along with detailed discharge instructions that have been reviewed with patient as well as indications for ED re-evaluation and additional outpatient follow up. Discharge Plan Departure Patient Disposition: Home Clinical Impression: Degenerative disk disease, Central stenosis of spinal canal Sciatica Qualifiers: Laterality: right Qualified Code(s): M54.31 - Sciatica, right side Instructions: DI for Sciatica Activity Restrictions/Additional Instructions: *You have been diagnosed with sciatica due to down disc disease and inflammation around the nerve root in your lumbar spine probably between L3 and L4. Please take these medications as needed. I have given you a steroid course, please take them with food, take 40 mg for the next 4 days, 20 mg for 3 days thereafter and save the rest for another flare. Please apply the diclofenac gel to your back, this will hopefully help. Use a pain pill as needed, I have given you some more gabapentin to use, try to use this just at nighttime or you may use up to 2 times in 24 hours but it will make you sleepy. Please do not combine the gabapentin at the same time as hydrocodone as this will cause excess drowsiness. Stay hydrated, use a stool softener to prevent constipation and follow-up with Dr. Flores and your primary care provider for another evaluation. *What to do: *Please continue to take your regular medications as directed. [x ] New medication prescriptions sent to your pharmacy: [ [facility]] [ ] New medication written as a paper prescription [ ] No new medications given *Please call and schedule follow up with your primary care provider in 2-3 days, at least for an update. Let them know you were seen in the Emergency Department for the above problem. We will electronically transmit a record of today's note if your PCP or specialist is in our system. *If you do not have a primary care provider please contact [phone] to establish care with one of the [facility] primary care providers. *Return to the Emergency Department for worsening symptoms, inability to keep liquids down, fever greater than 101F, chills, or other concerning symptom. Prescriptions: New hydrocodone-acetaminophen 5-325 mg tablet 1 tab PO Q6H PRN (Reason: pain) Qty: 14 0RF diclofenac sodium 1 % gel 4 g topical QID Qty: 100 0RF Rx Instructions: apply to low back up to 4 times a day for sciatica gabapentin 300 mg capsule 300 mg PO BEDTIME Qty: 30 0RF Rx Instructions: May take up to 2 times daily as needed for sciatica prednisone 20 mg tablet 40 mg PO DAILY Qty: 20 0RF Rx Instructions: Please take 40 mg daily for the next 4 days and then 20 mg for 3 days thereafter and then save the rest for another flare. No Action albuterol sulfate 90 mcg/actuation HFA aerosol inhaler 2 puff inhalation Q4-6H PRN (Reason: cough, shortness of breath or wheezing) Qty: 6.7 0RF (DME) BreatheRite MDI Spacer Spacer See Rx Instructions .Route Qty: 1 0RF Rx Instructions: As directed denosumab [Prolia] 60 mg/mL syringe 60 mg SUBCUT [id number] omeprazole 20 mg tablet,delayed release (DR/EC) 20 mg PO DAILY calcium carbonate 600 MG tablet 1,200 mg PO Qty: 0 cholecalciferol (vitamin D3) [Vitamin D3] 2,000 UNIT tablet 1 tab PO QDAY Qty: 0 rivaroxaban [Xarelto] 10 MG tablet 10 mg PO QDAY Qty: 0 trazodone 50 mg tablet 50 mg PO .QHS PRN (Reason: insomnia) Qty: 30 0RF fluoxetine 20 mg tablet 20 mg PO QAM Qty: 30 1RF cyclobenzaprine 10 mg tablet 10 mg PO TID PRN (Reason: muscle spasm) Qty: 14 0RF gabapentin 300 mg capsule 300 mg PO BEDTIME Qty: 14 0RF methylprednisolone [Medrol (Pedro Pablo)] 4 mg tablets,dose pack See Rx Instructions .ROUTE .COMPLEX Qty: 21 0RF Rx Instructions: orally per package directions Referrals: Jean Pierre Flores DO [Physician] - Jean Pierre Mackay MD [Primary Care Provider] - Stand Alone Forms: Patient Portal/API <Rogelio Martin DO - Last Filed: 12/25/22 16:19> Cosign [facility]ending [facility] Attestation: I was immediately available in the department for consultation. Documentation has been reviewed. I agree with assessment and plan.
[2022-12-24] MEDS: LIDOCAINE PATCH 1 EACH ADH..PATCH TOP (18:01)
[2022-12-24] MEDS: GABAPENTIN 300 MG CAPSULE PO (18:01)
[2022-12-24] MEDS: PANTOPRAZOLE DR 20 MG TABLET PO (18:01)
[2022-12-24] MEDS: predniSONE 20 MG TABLET 40 MG PO (18:01)
[2022-12-24 18:40] VITALS: BP 113/61; PULSE 75; RESP 18; O2SAT 96
== END 2022-12-24 18:41 | disposition home or self-care (01) ==
PROVIDERS: Emergency Provider Nurse Practitioner Critical Care Medicine; PCP Family Medicine
DX: M51.36 Other intervertebral disc degeneration, lumbar region (principal); M48.061 Spinal stenosis, lumbar region without neurogenic claudication; M54.31 Sciatica, right side
CPT/HCPCS: 99283; 99284

== ENCOUNTER → 2022-12-29 15:42 | Outpatient (CLI) | payer MEDICARE, SELFPAY ==
--- NOTE | 2022-12-29 | DI.MG.S_ITS ---
BILATERAL DIGITAL SCREENING MAMMOGRAM 3D/2D WITH CAD: 12/29/2022 CLINICAL: Routine screening. Comparison is made to exams dated: 12/28/2021 mammogram, 06/25/2019 mammogram, and 09/03/2018 mammogram - [facility]. There are scattered areas of fibroglandular density in both breasts (category b / 25%-50% glandular tissue). Current study was also evaluated with a Computer Aided Detection (CAD) system. There are benign calcifications in both breasts. No significant masses, calcifications, or other findings are seen in either breast. There has been no significant interval change. IMPRESSION: BENIGN There is no mammographic evidence of malignancy. A 1 year screening mammogram is recommended. Based on the Tyrer Cuzick model (a risk assessment model) the patient's lifetime risk is 2.5% and her 10 year risk is 0.0%. According to the ACR, ACS, and NCCN guidelines, an annual breast MRI exam along with mammogram is recommended if the patient's lifetime risk is 20% or greater. This exam was interpreted at Station ID: [id number]. NOTE: For mammograms, a report in lay terms will be sent to the patient. Approximately 15% of breast malignancies will not be visualized mammographically. In the management of a palpable breast mass, a negative mammogram must not discourage biopsy of a clinically suspicious lesion. Electronically Signed By: Love helton/wilton:01/03/2023 08:06:31 letter sent: Normal Exam ACR BI-RADS Category 2: Benign Finding(s) [id number]
== END ==
PROVIDERS: PCP Family Medicine; Referring Provider Family Medicine; Visit Provider Family Medicine
DX: Z12.31 Encounter for screening mammogram for malignant neoplasm of breast (principal)
CPT/HCPCS: 77063; 77067

== ENCOUNTER → 2023-07-28 11:25 | Outpatient (CLI) | payer MEDICARE, SELFPAY ==
[2023-07-28 14:14] LABS: Influenza A - CEPHEID Flu A NEGATIVE (NEGATIVE); Influenza B - CEPHEID Flu B NEGATIVE (NEGATIVE); Respiratory Syncytial Virus Negative (Negative)
[2023-07-28 14:17] LABS: COVID-19 CEPHEID 4-PLEX PCR Negative (Negative)
== END ==
PROVIDERS: PCP Family Medicine; Visit Provider Nurse Practitioner Family
DX: R50.9 Fever, unspecified (principal); R05.8 Other specified cough
CPT/HCPCS: 0241U

== ENCOUNTER → 2023-09-07 12:09 | Outpatient (CLI) | payer MEDICARE, SELFPAY ==
--- NOTE | 2023-09-07 12:10 | DI.RAD.S_ITS ---
PROCEDURE: XR DEXA AXIAL SKELETON INDICATIONS: Comparisons of scans [facility]. FINDINGS: Lumbar Spine: L2-L4. Bone mineral density 1.026 g/cm2, T score -0.5. Left Hip: Bone mineral density 0.673 g/cm2, T score -2.2. Left Femoral Neck: Bone mineral density 0.560 g/cm2, T score -2.6. Right Hip: Bone mineral density 0.668 g/cm2, T score -2.2. Right Femoral Neck: Bone mineral density 0.639 g/cm2, T score -1.9. Fracture Risk Calculation (when applicable): Not reported due to treatment for osteoporosis. (T score greater or equal to -1.0 to: NORMAL) (T score from -1.1 to -2.4: OSTEOPENIA) (T score less than or equal to -2.5: OSTEOPOROSIS) IMPRESSION: Osteoporosis. Prior exam from 2016 utilizes a different technique. However there appears to be significant interval increase in bone mineral density. Follow-up guidelines as follows: Osteoporosis: Consider a repeat DEXA and Vertebral Fracture Assessment (VFA) exam in 2 years or sooner if medically necessary, to reassess this patient's status. Osteopenia: Consider a repeat DEXA in 2-3 years to reassess this patient's status, or if there is a new clinical indication. Normal: Consider a repeat DEXA in 5 years or sooner, or if there is a new clinical indication. Dictated by: Nazario Looney M.D. on 09/07/2023 at 13:37 Approved by: Nazario Looney M.D. on 09/07/2023 at 13:40
== END ==
LOC: RAD 12:10
PROVIDERS: PCP Family Medicine; Referring Provider Family Medicine; Visit Provider Family Medicine
DX: M81.0 Age-related osteoporosis without current pathological fracture (principal)
CPT/HCPCS: 77080

== ENCOUNTER → 2023-09-20 10:48 | Outpatient (CLI) | payer MEDICARE, SELFPAY ==
[2023-09-20 12:23] LABS: BUN Creatinine Ratio 31.7 (6-22); Blood Urea Nitrogen 19 mg/dL (7-17); Carbon Dioxide 31 mmol/L (22-32); Chloride 106 mmol/L (98-107); Estimated Glomerular Filt Rate > 60 mL/min (>60); Glucose 90 mg/dL (80-110); HEMOLYSIS < 15 (0-50); Potassium 4.3 mmol/L (3.4-5.1); Sodium 138 mmol/L (137-145)
[2023-09-20 12:30] LABS: Vitamin D 25 Hydroxy (D3) 67.6 ng/mL (30.0-100.0)
[2023-09-22 13:29] LABS: Calcium 9.2 mg/dL (8.7-10.3); Parathyroid Hormone, Intact 42 pg/mL (15-65)
== END ==
PROVIDERS: PCP Family Medicine; Referring Provider Family Medicine; Visit Provider Family Medicine
DX: M81.0 Age-related osteoporosis without current pathological fracture (principal)
CPT/HCPCS: 36415; 80048; 82306; 82310; 83970

== ENCOUNTER → 2023-12-18 08:44 | Outpatient (CLI) | payer MEDICARE, SELFPAY ==
[2023-12-18 09:58] LABS: Add Manual Diff / Slide Review NO; Basophils Absolute Auto 100 /uL (0-100); Basophils Percent Auto 1.1 % (0-2); Eosinophils Absolute Auto 300 /uL (0-450); Eosinophils Percent Auto 6.2 % (2-4); Hemoglobin 13.5 g/dL (12.0-16.0); Lymphocytes Absolute Auto 800 /uL (1100-4500); Lymphocytes Percent Auto 14.7 % (25-40); Mean Corpuscular HGB Conc 33.8 % (30-36); Mean Corpuscular Hemoglobin 32.9 PG (26-34); Mean Corpuscular Volume 97.2 fL (80-100); Monocytes Absolute Auto 400 /uL (0-900); Monocytes Percent Auto 8.1 % (3-14); Neutrophils Absolute Auto 3600 /uL (1500-7000); Neutrophils Percent Auto 69.9 % (50-75); Platelet Count 252 X10^3/uL (150-400); Red Blood Cell Count 4.12 X10^6/uL (4.0-5.2); Red Cell Distribution Width 13.5 % (11.6-14.8); White Blood Cell Count 5.1 X10^3/uL (4.5-11.0)
[2023-12-18 10:20] LABS: Cholesterol 228 mg/dL (140-199); Triglycerides 83 mg/dL (35-150)
[2023-12-18 10:27] LABS: HDL Cholesterol 113 mg/dL (40-60); LDL Cholesterol Calculated 98 mg/dL (<100)
[2023-12-18 11:09] LABS: Vitamin B12 Reflex MMA if <400 290 pg/mL (239-931)
[2023-12-18 12:05] LABS: TSH w/ Reflex to FT4 1.64 uIU/mL (0.47-4.68)
== END ==
LOC: LAB 08:45
PROVIDERS: PCP Family Medicine; Referring Provider Family Medicine; Visit Provider Family Medicine
DX: F32.A Depression, unspecified (principal); Z13.220 Encounter for screening for lipoid disorders; R63.4 Abnormal weight loss; R53.83 Other fatigue; R41.3 Other amnesia
CPT/HCPCS: 36415; 80061; 82607; 83921; 84443; 85025

== ENCOUNTER → 2024-03-02 12:49 | Outpatient (CLI) | payer MEDICARE, SELFPAY ==
--- NOTE | 2024-03-02 12:50 | DI.MG.S_ITS ---
BILATERAL DIGITAL SCREENING MAMMOGRAM 3D/2D WITH CAD: 03/02/2024 CLINICAL: Routine screening. Comparison is made to exams dated: 12/29/2022 mammogram, 12/28/2021 mammogram, and 06/25/2019 mammogram - [facility]. The breasts are heterogeneously dense, which may obscure small masses (category c / 51-75% glandular tissue). Current study was also evaluated with a Computer Aided Detection (CAD) system. There are benign calcifications in both breasts. No significant masses, calcifications, or other findings are seen in either breast. There has been no significant interval change. IMPRESSION: BENIGN There is no mammographic evidence of malignancy. A 1 year screening mammogram is recommended. Based on the Tyrer Cuzick model (a risk assessment model) the patient's lifetime risk is 3.5% and her 10 year risk is 0.0%. According to the ACR, ACS, and NCCN guidelines, an annual breast MRI exam along with mammogram is recommended if the patient's lifetime risk is 20% or greater. This exam was interpreted at Station ID: [id number]. NOTE: For mammograms, a report in lay terms will be sent to the patient. Approximately 15% of breast malignancies will not be visualized mammographically. In the management of a palpable breast mass, a negative mammogram must not discourage biopsy of a clinically suspicious lesion. Electronically Signed By: Ben wise/wilton:03/04/2024 07:14:12 letter sent: Normal Exam ACR BI-RADS Category 2: Benign
== END ==
PROVIDERS: PCP Family Medicine; Referring Provider Family Medicine; Visit Provider Family Medicine
DX: Z12.31 Encounter for screening mammogram for malignant neoplasm of breast (principal); R92.333 Mammographic heterogeneous density, bilateral breasts
CPT/HCPCS: 77063; 77067

== ENCOUNTER → 2024-09-11 13:53 | Outpatient (CLI) | payer MEDICARE, SELFPAY ==
[2024-09-11 14:49] LABS: COVID-19 CEPHEID 4-PLEX PCR Negative (Negative); Influenza A - CEPHEID Flu A NEGATIVE (NEGATIVE); Influenza B - CEPHEID Flu B NEGATIVE (NEGATIVE); Respiratory Syncytial Virus Negative (Negative)
== END ==
LOC: LAB 13:54
PROVIDERS: PCP Family Medicine; Visit Provider Chiropractor
DX: R05.1 Acute cough (principal)
CPT/HCPCS: 0241U

== ENCOUNTER → 2024-10-23 14:52 | Outpatient (CLI) | payer MEDICARE, SELFPAY ==
[2024-10-23 15:32] LABS: Add Manual Diff / Slide Review NO; Basophils Absolute Auto 0 /uL (0-100); Basophils Percent Auto 0.9 % (0-2); Eosinophils Absolute Auto 400 /uL (0-450); Eosinophils Percent Auto 9.1 % (2-4); Hematocrit 40.1 % (36-46); Hemoglobin 13.6 g/dL (12.0-16.0); Lymphocytes Absolute Auto 800 /uL (1100-4500); Lymphocytes Percent Auto 19.6 % (25-40); Mean Corpuscular HGB Conc 33.8 % (30-36); Mean Corpuscular Volume 97.5 fL (80-100); Monocytes Absolute Auto 400 /uL (0-900); Monocytes Percent Auto 10.1 % (3-14); Neutrophils Absolute Auto 2600 /uL (1500-7000); Neutrophils Percent Auto 60.3 % (50-75); Platelet Count 264 X10^3/uL (150-400); Red Blood Cell Count 4.11 X10^6/uL (4.0-5.2); Red Cell Distribution Width 14.2 % (11.6-14.8); White Blood Cell Count 4.3 X10^3/uL (4.5-11.0)
[2024-10-23 16:19] LABS: Alanine Aminotransferase 17 IU/L (<35); Albumin 4.2 g/dL (3.5-5.0); Albumin Globulin Ratio 1.8 (1.0-2.8); Alkaline Phosphatase 61 U/L (38-126); Aspartate Aminotransferase 25 IU/L (14-36); BUN Creatinine Ratio 21.7 (6-22); Bilirubin Total 0.4 mg/dL (0.2-1.3); Blood Urea Nitrogen 18 mg/dL (7-17); Calcium 9.5 mg/dL (8.4-10.2); Carbon Dioxide 29 mmol/L (22-32); Chloride 103 mmol/L (98-107); Estimated Glomerular Filt Rate > 60 mL/min (>60); Globulin 2.4 g/dL (1.7-4.1); Glucose 95 mg/dL (70-99); HEMOLYSIS < 15 (0-50); Potassium 4.1 mmol/L (3.4-5.1); Sodium 136 mmol/L (137-145); Total Protein 6.6 g/dL (6.3-8.2)
[2024-10-23 16:53] LABS: TSH w/ Reflex to FT4 0.07 uIU/mL (0.47-4.68)
[2024-10-23 17:11] LABS: Vitamin B12 299 pg/mL (239-931)
[2024-10-23 17:16] LABS: Free T4, Direct Thyroxine 1.28 ng/dL (0.78-2.19)
== END ==
PROVIDERS: PCP Family Medicine; Referring Provider Family Medicine; Visit Provider Family Medicine
DX: R25.1 Tremor, unspecified (principal); R53.83 Other fatigue
CPT/HCPCS: 36415; 80053; 82607; 84439; 84443; 85025

== ENCOUNTER 2024-10-31 11:03 | Emergency (ER) | payer MEDICARE, SELFPAY ==
[2024-10-31 12:02] VITALS: BP 123/58; PULSE 69; RESP 16; TEMP 36.4; O2SAT 96; BMI 22.1
--- NOTE | 2024-10-31 12:05 | DI.RAD.S_ITS ---
PROCEDURE: XR HUMERUS RT 2V INDICATIONS: fall TECHNIQUE: 2 views of the humerus were acquired. COMPARISON: [facility], CR, XR SHOULDER RT 2+ VIEWS, 10/31/2024, 11:29. FINDINGS: Bones: No fractures or dislocations. No suspicious bony lesions. Midthoracic kypho/vertebroplasty. Soft tissues: No suspicious soft tissue calcifications. Mild appearance of increased vascularity effusions within the lungs suggestive of edema. IMPRESSION: No visualized acute fracture or dislocation. However, if clinical concern and/or pain persist, short interval imaging followup in 7-10 days is recommended, as occult injury cannot be definitively excluded. Dictated by: Karina French M.D. on 10/31/2024 at 12:51 Approved by: Karina French M.D. on 10/31/2024 at 12:51
--- NOTE | 2024-10-31 12:06 | DI.RAD.S_ITS ---
PROCEDURE: XR SHOULDER RT MIN 2V INDICATIONS: fall TECHNIQUE: 3 views of the shoulder were acquired. COMPARISON: [facility], CR, XR HUMERUS RT 2V, 10/31/2024, 11:32. FINDINGS: Bones: No fractures or dislocations. No suspicious bony lesions. Visualized ribs appear intact. Previous thoracic vertebral/kyphoplasty. Soft tissues: No suspicious soft tissue calcifications. Appearance of increased vascularity and minimal effusions within the lungs suggestive of edema. IMPRESSION: No visualized acute fracture or dislocation. However, if clinical concern and/or pain persist, short interval imaging followup in 7-10 days is recommended, as occult injury cannot be definitively excluded. Dictated by: Karina French M.D. on 10/31/2024 at 12:50 Approved by: Karina French M.D. on 10/31/2024 at 12:51
--- NOTE | 2024-10-31 12:29 | ED.UPPEXIN ---
HPI - Extremity Injury (Upper) <Deirdre Galicia PA-C - Last Filed: 10/31/24 13:03> General Chief Complaint: Extremity Injury, Upper Stated Complaint: Fell, right arm pain Time Seen by Provider: 10/31/24 12:24 Source: patient Mode of arrival: Ambulatory History of Present Illness HPI narrative: Ms. Lerner is a very pleasant 71-year-old female with a past medical history of COPD, osteoporosis, DVT on xarelto who presents to the emergency department for right upper arm pain after a trip and fall that occurred last night while she was [place] the theater. Patient states she was attempting to ?scoot? into her seat at the theater when she fell from a seated position sideways onto the floor because she missed the full seat. This caused her to hit her right shoulder/upper arm. She did not hit her head or sustain any other injuries. Reports that pain is in the middle of the humerus however pain causes her difficulty with abducting the right shoulder. She denies collarbone pain, elbow pain, forearm pain, hand pain or pain on her lower extremities left arm or trunk. She is taken Tylenol for the pain and denies need for any additional pain medicine. She does have a small bruise on the mid humerus but states that this was from bumping into her dresser a few days ago. Related Data Home Medications ?Medication ?Instructions ?Recorded ?Confirmed cholecalciferol (vitamin D3) 50 1 tab PO QDAY ##0 06/17/16 10/23/24 mcg (2,000 unit) tablet (Vitamin D3) omeprazole 20 mg tablet,delayed 20 mg PO DAILY 01/20/18 10/23/24 release bupropion HCl 150 mg 24 hr tablet, 300 mg PO QAM 10/23/24 extended release Previous Rx's ?Medication ?Instructions ?Recorded calcium carbonate 1,200 mg (2 x 600 mg calcium 09/04/23 (1,500 mg)) PO DAILY #90 tabs albuterol sulfate 90 mcg/actuation 2 puff inhalation Q6H PRN 09/11/24 aerosol inhaler shortness of breath or wheezing #8.5 grams rivaroxaban 10 mg tablet (Xarelto) 10 mg PO QDAY #90 tabs 09/25/24 trazodone 50 mg tablet 50 mg PO BEDTIME PRN insomnia #90 09/25/24 tabs fluoxetine 20 mg tablet 40 mg (2 x 20 mg) PO QAM #180 tabs 09/30/24 denosumab 60 mg/mL subcutaneous 60 mg SUBCUT [id number] #1 mL 10/23/24 syringe (Prolia) Allergies Allergy/AdvReac Type Severity Reaction Status Date / Time iodine Allergy Intermediate SWELLING, Verified 10/31/24 12:02 RASH TOPICAL only Review of Systems <Deirdre Galicia PA-C - Last Filed: 10/31/24 13:03> Review of Systems ROS Unobtainable: All systems reviewed & are unremarkable except as noted in HPI and below Patient History <Deirdre Galicia PA-C - Last Filed: 10/31/24 13:03> Medical History Postnasal drip Fatigue COPD (chronic obstructive pulmonary disease) Measles (~1956) Chicken pox (~1953) Deep vein thrombosis Anxiety 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 Well-developed patient, in no acute distress. HEAD: Atraumatic. Normocephalic. EYES: Extraocular motions intact. No scleral icterus. No injection or drainage. ENT: Nose without bleeding, purulent drainage. NECK: Trachea midline. Cervical ROM intact. CARDIOVASCULAR: Regular rate and rhythm. RESPIRATORY: ?Nonlabored respirations. ?Speaking in clear, full sentences. ?Clear to auscultation. EXTREMITIES: 2 cm area of ecchymosis on anterior mid right upper arm. Patient has subjective pain in this area and pain with abduction of the right shoulder. Limited range of motion of right shoulder secondary to pain. No tenderness to palpation of right clavicle. No tenderness to palpation of right elbow, no pain with flexion/extension of the elbow. No tenderness of forearm or right hand. Strong radial pulses bilaterally. BACK: Nontender. NEURO: AOx3. ?Clear speech. ?SITLT throughout upper and lower extremities. SKIN: No rashes or open wounds. Initial Vital Signs Initial Vital Signs: Vital Signs Temperature 97.6 F 10/31/24 12:02 Pulse Rate 69 10/31/24 12:02 Respiratory Rate 16 10/31/24 12:02 Blood Pressure 123/58 L 10/31/24 12:02 Pulse Oximetry 96 10/31/24 12:02 Oxygen Delivery Method Room Air 10/31/24 12:02 <Melvin Hollins MD - Last Filed: 11/03/24 18:40> Initial Vital Signs Initial Vital Signs: Vital Signs Temperature 97.6 F 10/31/24 12:02 Pulse Rate 69 10/31/24 12:02 Respiratory Rate 16 10/31/24 12:02 Blood Pressure 123/58 L 10/31/24 12:02 Pulse Oximetry 96 10/31/24 12:02 Oxygen Delivery Method Room Air 10/31/24 12:02 Course <Deirdre Galicia PA-C - Last Filed: 10/31/24 13:03> Orders Ordered: ED Orders 10/31/24 12:05 XR humerus RT 2V Stat 10/31/24 12:06 XR shoulder RT 2+ views Stat Vital Signs Vital signs: Vital Signs - 8 hr 10/31/24 12:02 Temperature 97.6 F Pulse Rate 69 Respiratory Rate 16 Blood Pressure 123/58 L Pulse Oximetry 96 Oxygen Delivery Method Room Air <Melvin Hollins MD - Last Filed: 11/03/24 18:40> Orders Ordered: ED Orders 10/31/24 12:05 XR humerus RT 2V Stat 10/31/24 12:06 XR shoulder RT 2+ views Stat Vital Signs Vital signs: Vital Signs - 8 hr 10/31/24 12:02 Temperature 97.6 F Pulse Rate 69 Respiratory Rate 16 Blood Pressure 123/58 L Pulse Oximetry 96 Oxygen Delivery Method Room Air MDM - Extremity Injury (Upper) <Deirdre Galicia PA-C - Last Filed: 10/31/24 13:03> Medical Records Attestation: I reviewed the patient's medical records. Imaging Data Right Shoulder X-Ray: Radiologist's Impression: PROCEDURE: XR SHOULDER RT MIN 2V INDICATIONS: fall TECHNIQUE: 3 views of the shoulder were acquired. COMPARISON: [facility], XR HUMERUS RT 2V, 10/31/2024, 11:32. FINDINGS: Bones: No fractures or dislocations. No suspicious bony lesions. Visualized ribs appear intact. Previous thoracic vertebral/kyphoplasty. Soft tissues: No suspicious soft tissue calcifications. Appearance of increased vascularity and minimal effusions within the lungs suggestive of edema. IMPRESSION: No visualized acute fracture or dislocation. However, if clinical concern and/or pain persist, short interval imaging followup in 7-10 days is recommended, as occult injury cannot be definitively excluded. Dictated by: Karina French M.D. on 10/31/2024 at 12:50 Approved by: Karina French M.D. on 10/31/2024 at 12:51 Right Humerus X-Ray: Radiologist's Impression: PROCEDURE: XR HUMERUS RT 2V INDICATIONS: fall TECHNIQUE: 2 views of the humerus were acquired. COMPARISON: [facility], XR SHOULDER RT 2+ VIEWS, 10/31/2024, 11:29. FINDINGS: Bones: No fractures or dislocations. No suspicious bony lesions. Midthoracic kypho/vertebroplasty. Soft tissues: No suspicious soft tissue calcifications. Mild appearance of increased vascularity effusions within the lungs suggestive of edema. IMPRESSION: No visualized acute fracture or dislocation. However, if clinical concern and/or pain persist, short interval imaging followup in 7-10 days is recommended, as occult injury cannot be definitively excluded. Dictated by: Karina French M.D. on 10/31/2024 at 12:51 Approved by: Karina French M.D. on 10/31/2024 at 12:51 MDM Narrative Medical decision making narrative: 71-year-old female with a past medical history of COPD, osteoporosis, DVT on xarelto who presents to the emergency department for right upper arm pain after a trip and fall that occurred last night [place] she was [place] the theater. Differential diagnosis includes but is not limited to right upper arm contusion, right shoulder fracture, dislocation, sprain, strain, etc. On exam patient is in no acute distress, nontoxic appearing, vital signs appropriate. She is experiencing right upper arm pain after slowly falling onto the ground from a seated position due to missing the edge of her seat. There was no head trauma or injuries to any other area of her battery. She is having pain with abduction of the right shoulder, no obvious deformities, open wounds. Both upper extremities are neurovascularly intact. We will obtain x-ray imaging of right shoulder and humerus. She denies need for pain medication. Humerus x-ray reveals no acute fracture or dislocation, shoulder x-ray reveals no acute fracture or dislocation. Imaging results were printed with the patient and chronic findings were discussed. She denies need for sling for comfort. Discussed Tylenol, rest, ice and heat therapy and following up with the primary care doctor and orthopedics if needed. She verbalized understanding of all information and is agreeable to the plan, strict ED return precautions discussed. She is stable for discharge home with her spouse, Waldemar. Discharge Plan Departure Patient Disposition: Home Clinical Impression: Fall from ground level Right shoulder strain Qualifiers: Encounter type: initial encounter Qualified Code(s): S46.911A - Strain of unspecified muscle, fascia and tendon at shoulder and upper arm level, right arm, initial encounter Contusion of arm, right Qualifiers: Encounter type: initial encounter Qualified Code(s): S40.021A - Contusion of right upper arm, initial encounter Instructions: DI for Contusion, DI for Shoulder Sprain Activity Restrictions/Additional Instructions: Dear Rosie Eduarda, Thank you for coming to the emergency department. Today you were evaluated for right upper arm injury after a fall. X-ray of your right shoulder and your right humerus reveal no fractures or dislocations. X-rays do not tell us about soft tissues so it is very important to rest, use ice and heat therapy, take Tylenol to help with your recovery. If you have persistent or worsening pain you should follow up with your doctor for repeat evaluation and potentially repeat imaging. If needed, you may benefit from a referral to orthopedic surgery for further evaluation of your rotator cuff muscles. Please return to the emergency department if you develop any new or worsening symptoms, severe pain, or any other concerns. Please follow up with your primary care doctor within the next 2-3 days for ER follow-up. (If you do not have a PCP you can call [phone]. ?to schedule an appointment with an [facility] Primary Care Provider) IF YOU DEVELOP ANY NEW OR WORSENING SYMPTOMS, RETURN TO THE ER! Please read the attached instructions, they highlight more specific treatments and interventions for you at home. Thank you for letting me participate in your care, Deirdre Galicia PA-C Prescriptions: No Action albuterol sulfate 90 mcg/actuation HFA aerosol inhaler 2 puff inhalation Q6H PRN (Reason: shortness of breath or wheezing) Qty: 8.5 0RF calcium carbonate 600 mg calcium (1,500 mg) tablet 1,200 mg PO DAILY Qty: 90 3RF bupropion HCl 150 mg tablet extended release 24 hr 300 mg PO QAM Patient Comments: Dr. Martines dose increase Prolia 60 mg/mL syringe 60 mg SUBCUT [id number] Qty: 1 0RF omeprazole 20 mg tablet,delayed release (DR/EC) 20 mg PO DAILY cholecalciferol (vitamin D3) [Vitamin D3] 2,000 UNIT tablet 1 tab PO QDAY Qty: 0 trazodone 50 mg tablet 50 mg PO BEDTIME PRN (Reason: insomnia) Qty: 90 0RF Xarelto 10 mg tablet 10 mg PO QDAY Qty: 90 0RF fluoxetine 20 mg tablet 40 mg PO QAM Qty: 180 0RF Referrals: Fatimah Valladares MD [Primary Care Provider, Family Practice] Stand Alone Forms: Patient Portal/API ED Sign-out <Melvin Hollins MD - Last Filed: 11/03/24 18:40> [facility] I was immediately available in the department for consultation. ?This documentation has been reviewed and I agree with assessment and plan. Supervised by Melvin Hollins MD
[2024-10-31 13:05] VITALS: RESP 16
--- NOTE | 2024-10-31 13:06 | PC.NURSE ---
see triage for further information. no skin tears noted. GCS 15. Pupils 2mm round, equal reactive.
== END 2024-10-31 13:10 | disposition home or self-care (01) ==
PROVIDERS: Emergency Provider Physician Assistant; PCP Family Medicine
DX: S46.911A Strain of unspecified muscle, fascia and tendon at shoulder and upper arm level, right arm, initial encounter (principal); S40.021A Contusion of right upper arm, initial encounter; W01.0XXA Fall on same level from slipping, tripping and stumbling without subsequent striking against object, initial encounter
CPT/HCPCS: 73030; 73060; 99281; 99283

== ENCOUNTER → 2025-02-20 11:01 | Outpatient (CLI) | payer MEDICARE, SELFPAY ==
[2025-02-20 12:42] LABS: COVID-19 CEPHEID 4-PLEX PCR Negative (Negative); Influenza A - CEPHEID Flu A NEGATIVE (NEGATIVE); Influenza B - CEPHEID Flu B NEGATIVE (NEGATIVE)
== END ==
PROVIDERS: PCP Family Medicine; Visit Provider Physician Assistant
DX: R05.1 Acute cough (principal)
CPT/HCPCS: 87637